=== PATIENT | female | born 1935 | race Caucasian/White ===

== ENCOUNTER 2018-04-03 14:47 | Emergency (ER) | payer BC, MEDICARE ==
[~2018-04-03] VITALS: Ht 170.2 cm; Wt 82.5 kg
[~2018-04-03 14:47] MED LIST: ANTI12.5 PO; ASPI325T PO; ASPI81 PO; CLOP75 PO; FENO50TA PO; FURO1TAB93 PO; GLYB1TAB51 PO; INSU100V SQ; ISOS30 PO; LEVO.15 PO; METO50TA PO; NIAS10004 PO; ONDA8 PO; POTA-243 PO; POTA75TA PO; PREV30CA36 PO; RAMI2.5C29 PO; ROSU40 PO
[2018-04-03 14:49] VITALS: BP 174/89; PULSE 93; RESP 18; TEMP 98.3; O2SAT 94
--- NOTE | 2018-04-03 15:34 | PD ---
HPI Chief Complaint: Fall Time Seen by Provider: 15:01 Travel History International Travel<30 days: No Contact w/Intl Traveler<30days: No Traveled to known affect area: No History of Present Illness HPI Patient approximately 2 nights ago tripped and fell landed on her right flank area. She has had pain there ever since, she comes in today to get evaluated since she decided not to come in the day that it happened. Patient denies any loss of consciousness any chest pain any shortness of breath or any confusion since a fall. She also denies any abdominal pain or back pain. The pain is described as sharp worsened with activity or movement, 4 out of 10, nonradiating. Patient has multiple allergies including Tylenol when Metformin azithromycin sulfa Past medical history significant for hypothyroid, triple bypass in 2004, on Plavix, CHF, CABG, hypercholesterolemia, hypertension, cholecystectomy, GERD, diabetes, anxiety claustrophobia. PFSH Past Medical History Hx Anticoagulant Therapy: Yes (PLAVIX) Autoimmune Disease: No Anxiety: Yes Heart Rhythm Problems: No Cancer: No Cardiovascular Problems: Yes (TRIPLE BYPASS 2004) High Cholesterol: Yes Chest Pain: No Congestive Heart Failure: Yes Diabetes: Yes Diminished Hearing: No Endocrine: Yes GERD: Yes Glaucoma: No Genitourinary: Yes Hepatitis: No Hiatal Hernia: No Hypertension: Yes Neurologic: No Psychiatric: Yes Reproductive: No Respiratory: No Immunizations Current: Yes Myocardial Infarction: No Sickle Cell Disease: No Thyroid Disease: Yes Ulcer: No Menopausal: Yes : 1 Para: 1 Past Surgical History AICD: No Cholecystectomy: Yes (2007) Coronary Artery Bypass Graft: Yes (2004, 3 VESSELS) Endocrine Surgery: Yes ( THYROIDECTOMY,1959) Pacemaker: No Thoracic Surgery: Yes (BILAT BREAST BX) Other Surgery: Yes (VERICOSE VEIN RESECTION) Social History Alcohol Use: No Tobacco Use: No Substance Use: No Allergies-Medications (Allergen,Severity, Reaction): Coded Allergies: Sulfa (Sulfonamide Antibiotics) (Unverified Allergy, Severe, HIVES, ) azithromycin (Unverified Allergy, Severe, Hives, 06/09/17) metformin (Unverified Allergy, Severe, HIVES, 06/09/17) pentazocine (Unverified Allergy, Severe, HIVES, 06/09/17) thiopental (Unverified Allergy, Severe, HIVES, 06/09/17) Uncoded Allergies: CO- QUETIN (Adverse Reaction, Severe, HIVES, 01/26/13) NICKEL (Adverse Reaction, Severe, RASH, 12/28/08) TAPE (Adverse Reaction, Severe, 12/28/08) Reported Meds & Prescriptions Reported Meds & Active Scripts Active Reported Antivert (Meclizine HCl) 12.5 Mg Tab 12.5 Mg PO Q4-6HPRN Zofran 8 Mg Tab (Ondansetron Hcl) 8 Mg Tab 8 Mg PO Q6HPRN Potassium 75 Mg Tab 500 Mg PO HS Imdur 30 Mg (Isosorbide Mononitrate) 30 Mg Tabcr 30 Mg PO DAILY Synthroid (Levothyroxine Sodium) 150 Mcg Tab 150 Mcg PO DAILY Aspirin 81 Mg Tab 81 Mg PO AM Lasix (Furosemide) 40 Mg Tab 40 Mg PO DAILY Humalog Mix 75/25 (Insulin Lispro Protam/Lispro Human) 100 Units/Ml Inj 35 Units SQ DIRECTED Humalog Mix 75/25 (Insulin Lispro Protam/Lispro Human) 100 Units/Ml Inj 55 Units SQ AM Plavix (Clopidogrel Bisulfate) 75 Mg Tab 75 Mg PO EVERY OTHER DAY Klor-Con 10 Meq (Potassium Chloride) 10 Meq Tabcr 10 Meq PO DAILY Altace (Ramipril) 2.5 Mg Cap 2.5 Mg PO DAILY Prevacid (Lansoprazole) 30 Mg Capcr 30 Mg PO DAILY Niaspan Er (Niacin) 1,000 Er Tab 1,500 Mg PO HS Diabeta (Glyburide) 5 Mg Tab 10 Mg PO BID 5 MG - PT TAKES 2 TAB BID Crestor (Rosuvastatin Calcium) 40 Mg Tab 40 Mg PO HS Lopressor (Metoprolol Tartrate) 50 Mg Tab 50 Mg PO BID Tricor (Fenofibrate) 145 Mg Tab 145 Mg PO DIRECTED PT TAKES @ 2100 Aspirin 325 mg (Aspirin) 325 Mg Tab 325 Mg PO DAILY PT TAKES AT 1700 Review of Systems General / Constitutional: No: Fever Eyes: No: Visual changes HENT: No: Headaches Cardiovascular: No: Chest Pain or Discomfort Respiratory: No: Shortness of Breath Gastrointestinal: No: Abdominal Pain Genitourinary: Positive: Flank Pain Musculoskeletal: No: Pain Skin: Positive Other (Bruising to right flank area) Neurologic: No: Weakness Psychiatric: No: Depression Endocrine: No: Polydipsia Hematologic/Lymphatic: No: Easy Bruising Physical Exam Narrative GENERAL: SKIN: Warm and dry. HEAD: Atraumatic. Normocephalic. EYES: Pupils equal and round. No scleral icterus. No injection or drainage. ENT: No nasal bleeding or discharge. Mucous membranes pink and moist. No hemotympanum NECK: Trachea midline. No JVD. CARDIOVASCULAR: Regular rate and rhythm. RESPIRATORY: No accessory muscle use. Clear to auscultation. Breath sounds equal bilaterally. GASTROINTESTINAL: Abdomen soft, non-tender, nondistended. Of note the right flank area has a region of ecchymosis approximately the size of a softball and diameter however is not raised very much mostly flat ecchymosis. No palpable crepitus noted MUSCULOSKELETAL: Extremities without clubbing, cyanosis, or edema. No obvious deformities. NEUROLOGICAL: Awake and alert. No obvious cranial nerve deficits. Motor grossly within normal limits. Five out of 5 muscle strength in the arms and legs. Normal speech. PSYCHIATRIC: Appropriate mood and affect; insight and judgment normal. Data Data Last Documented VS Vital Signs Date Time Temp Pulse Resp B/P (MAP) Pulse Ox O2 Delivery O2 Flow Rate FiO2 04/03/18 15:17 Room Air 04/03/18 14:49 98.3 93 18 174/89 (117) [address] Brain W/O Iv Contrast(Rout) (04/03/18 15:06) Ct Abd/Pel W/O Iv Contrast (04/03/18 ) Ct Thorax/ Chest Wo Iv Contras (04/03/18 ) MDM Medical Decision Making Medical Screen Exam Complete: Yes Emergency Medical Condition: Yes Medical Record Reviewed: Yes Differential Diagnosis Contusion versus fracture versus liver lack versus rib fracture versus pneumothorax Narrative Course Head CT read by radiologist as no acute findings in the brain, moderate severity central and cortical atrophy Chest CT read by radiologist as no acute findings in the chest, mild posterior lateral right pleural thickening and nonunion of the medial sternotomy defect stable since 2014 CT abdomen and pelvis read by radiologist as solid and hollow organs of the abdominal pelvis and an intact work noncontrast technique, mild induration of the subcutaneous soft tissue posterior to lateral right flank... Clinically this is most consistent with the contusion that was noted on physical exam Diagnosis Primary Impression: Right flank contusion Patient Instructions: Contusion in Adults (ED), General Instructions Disposition: 01 DISCHARGE HOME Condition: Stable Gerardo Gamboa MD Apr 03, 2018 15:34
--- NOTE | 2018-04-03 16:04 | RADRPT ---
EXAM DATE: 04/03/2018 3:46 PM EDT AGE/SEX: 83 years / Female INDICATIONS: Tripped and fell 2 days ago, cephalgia. CLINICAL DATA: This is the patient's initial encounter. Patient reports that signs and symptoms have been present for 1 day and indicates a pain score of 4/10. MEDICAL/SURGICAL HISTORY: Cardiovascular disease. Congestive heart failure. Thyroid disease. CAB G. RADIATION DOSE: 56.35 CTDI (mGy) COMPARISON: No prior exams available for comparison. TECHNIQUE: CT of the head without contrast. Using automated exposure control and adjustment of the mA and/or kV according to patient size, radiation dose was kept as low as reasonably achievable to ob tain optimal diagnostic quality images. FINDINGS: Cerebrum: The ventricles, sulci, and basal cisterns are prominent, characteristic of moderate centra l and cortical atrophy.. No evidence of midline shift, mass lesion, hemorrhage or acute infarction. No extraaxial fluid collections are seen. Posterior Fossa: The cerebellum and brainstem are intact. The 4th ventricle is midline. The cerebe llopontine angle is unremarkable. Extracranial: The visualized portion of the orbits is intact. Skull: The calvaria is intact. No evidence of skull fracture. CONCLUSION: 1. No acute findings in the brain. 2. Moderate severity central and cortical atrophy. Electronically signed by: Tolu Willams MD 04/03/2018 4:02 PM EDT
--- NOTE | 2018-04-03 16:10 | RADRPT ---
EXAM DATE: 04/03/2018 3:52 PM EDT AGE/SEX: 83 years / Female INDICATIONS: Tripped and fell two days ago, right flank pain. CLINICAL DATA: This is the patient's initial encounter. Patient reports that signs and symptoms have been present for 1 day and indicates a pain score of 4/10. MEDICAL/SURGICAL HISTORY: Cardiovascular disease. Congestive heart failure. Thyroid disease. CABG . RADIATION DOSE: 5.44 CTDI (mGy) ; Combined studies COMPARISON: [facility], CT CHEST W/O CONTRAST, 08/31/2015. . TECHNIQUE: Multiple contiguous axial images were obtained through the chest without contrast. Image s were obtained in suspended respiration using multiple row detector helical technique. Using automa shelley exposure control and adjustment of the mA and/or kV according to patient size, radiation dose was kept as low as reasonably achievable to obtain optimal diagnostic quality images. FINDINGS: Lungs: The lungs are symmetrically aerated. No infiltrates or nodular densities are seen. There is minimal atelectasis in the right costophrenic angle. Mediastinum: There is good visualization of the great vessels of the middle mediastinum. No evidenc e of mediastinal or hilar adenopathy/mass.Coronary artery calcifications. Pleurae: There is some minimal pleural thickening posterior lateral right mid chest measuring up to 7 mm in thickness which is unchanged in appearance from prior CT in 2014.. Axillae: Unremarkable. Bony Structures: Prior median sternotomy with persistent lucency at the sternotomy defect and the le ft sternum more anterior than the right, stable from prior. No rib fractures seen. Miscellaneous: The examination was extended to include the upper abdomen, and both adrenal glands ar e normal in size and configuration. CONCLUSION: 1. No acute findings in the chest. 2. Mild posterior lateral right pleural thickening and nonunion of the median sternotomy defect, sta ble in appearance when compared to prior CT thorax in 2015. Electronically signed by: Tolu Willams MD 04/03/2018 4:08 PM EDT
--- NOTE | 2018-04-03 16:13 | RADRPT ---
EXAM DATE: 04/03/2018 3:52 PM EDT AGE/SEX: 83 years / Female INDICATIONS: Tripped and fell two days ago. CLINICAL DATA: This is the patient's initial encounter. Patient reports that signs and symptoms have been present for 1 day and indicates a pain score of 4/10. MEDICAL/SURGICAL HISTORY: Cardiovascular disease. Congestive heart failure. Thyroid disease. CABG. RADIATION DOSE: 5.44 CTDI (mGy) ; Combined studies COMPARISON: No prior exams available for comparison. TECHNIQUE: Multiple contiguous axial images were obtained through the abdomen. Images were obtained using multiple row detector helical technique. Using dose reduction techniques, radiation dose was ke pt as low as reasonably achievable to obtain optimal diagnostic quality images. FINDINGS: Liver: The liver has a homogeneous density without space-occupying lesion for noncontrast technique. There is no dilation of the biliary tree. Cholecystectomy. Spleen: Homogeneous density without enlargement. Pancreas: Unremarkable without mass or calcification. Kidneys: Normal in size and shape. No evidence of mass or hydronephrosis. Adrenal Glands: Unremarkable. Aorta: The aorta and proximal iliac vessels are grossly unremarkable without aneurysmal dilation. Bowel/Mesentery: No dilated loops of small or large bowel. A few diverticula in the sigmoid colon. T he appendix is identified lateral to the cecum and has a normal size and configuration. No evidence o f free fluid. Abdominal Wall: There is induration of the subcutaneous fat of the right posterior lateral flank bot h superficial and deep to Mulugeta's fascia. No focal fluid collections and no radiopaque foreign ramon s. Retroperitoneum: No evidence of adenopathy in the retrocrural, para-aortic, or deep pelvic regions. Bladder: Contours are smooth. Reproductive Organs: No abnormal masses or calcifications seen. Inguinal: The inguinal region is unremarkable without evidence of adenopathy. Bony Structures: Unremarkable. CONCLUSION: 1. Mild induration of the subcutaneous soft tissues posterior lateral right flank. 2. The solid and hollow organs of the abdomen/pelvis are intact for noncontrast technique. Electronically signed by: Tolu Willams MD 04/03/2018 4:12 PM EDT
[2018-04-03] MEDS ORDERED: ACETAMINOPHEN/HYDROcodone 325 MG/5 MG TAB PO ONE (18:15)
== END 2018-04-03 19:37 | disposition home or self-care (01) ==
LOC: NEPC 14:47
DX: S30.1XXA Contusion of abdominal wall, initial encounter (principal); W01.0XXA Fall on same level from slipping, tripping and stumbling without subsequent striking against object, initial encounter; I11.0 Hypertensive heart disease with heart failure; I50.9 Heart failure, unspecified; E78.00 Pure hypercholesterolemia, unspecified; E11.9 Type 2 diabetes mellitus without complications; Z95.1 Presence of aortocoronary bypass graft; Z88.2 Allergy status to sulfonamides; Z88.8 Allergy status to other drugs, medicaments and biological substances; Z79.02 Long term (current) use of antithrombotics/antiplatelets; Z79.4 Long term (current) use of insulin; Z79.899 Other long term (current) drug therapy
CPT/HCPCS: 70450; 71250; 74176

== ENCOUNTER 2018-04-05 14:07 | Inpatient (IN) | payer MEDICARE ==
[~2018-04-05] VITALS: Ht 170.2 cm; Wt 84.6 kg
[2018-04-05] VITALS (7 sets, daily range): BP systolic 147–216; BP diastolic 70–90; PULSE 70–117; RESP 17–28; TEMP 98.3–99.1; O2SAT 94–99
[2018-04-05] MEDS ORDERED: SODIUM CHLOR 0.9% 1000 ML INJ 1,000 ML IV ONE (14:18)
--- NOTE | 2018-04-05 14:37 | RADRPT ---
EXAM DATE: 04/05/2018 2:30 PM EDT AGE/SEX: 83 years / Female INDICATIONS: EPISODE OF APHASIC CLINICAL DATA: This is the patient's initial encounter. Patient reports that signs and symptoms have been present for 1 day and indicates a pain score of 0/10. MEDICAL/SURGICAL HISTORY: Cerebrovascular disease. Non-responsive. RADIATION DOSE: 35.79 CTDI (mGy) COMPARISON: [facility] [place], CT BRAIN W/O CONTRAST, 04/03/2018. . Report was called to Dr. Smith at 1430 TECHNIQUE: CT of the head without contrast. Using automated exposure control and adjustment of the mA and/or kV according to patient size, radiation dose was kept as low as reasonably achievable to ob tain optimal diagnostic quality images. FINDINGS: Cerebrum: Moderate central and cortical atrophy No evidence of midline shift, mass lesion, hemorrhag e or acute infarction. No extraaxial fluid collections are seen. Posterior Fossa: The cerebellum and brainstem are intact. The 4th ventricle is midline. The cerebe llopontine angle is unremarkable. Extracranial: The visualized portion of the orbits is intact. Skull: The calvaria is intact. No evidence of skull fracture. CONCLUSION: 1. Atrophy otherwise negative Electronically signed by: Rolan Limon MD 04/05/2018 2:36 PM EDT
[2018-04-05 14:55] LABS: PROTHROMBIN TIME - PATIENT 10.6 SEC (9.8-11.6)
[2018-04-05 14:57] LABS: TROPONIN I LESS THAN 0.02 NG/ML (0.02-0.05)
[2018-04-05 14:59] LABS: AUTOMATED NEUTROPHIL # 7.4 TH/MM3 (1.8-7.7); BASOPHIL # 0.1 TH/MM3 (0-0.2); BASOPHIL % 0.5 % (0.0-2.0); EOSINOPHIL # 0.2 TH/MM3 (0-0.4); EOSINOPHIL % 1.9 % (0.0-4.0); HEMATOCRIT 35.7 % (35.0-46.0); HEMOGLOBIN 11.9 GM/DL (11.6-15.3); LYMPH % 21.5 % (9.0-44.0); LYMPHOCYTE # 2.3 TH/MM3 (1.0-4.8); MEAN CELL VOLUME 85.9 FL (80.0-100.0); MEAN CORPUSCULAR HEMOGLOBIN 28.7 PG (27.0-34.0); MEAN CORPUSCULAR HGB CONC 33.4 % (32.0-36.0); MEAN PLATELET VOLUME 7.8 FL (7.0-11.0); MONO % 7.7 % (0.0-8.0); MONOCYTE # 0.8 TH/MM3 (0-0.9); NEUT % 68.4 % (16.0-70.0); PLATELET COUNT 345 TH/MM3 (150-450); RED BLOOD COUNT 4.16 MIL/MM3 (4.00-5.30); RED CELL DISTRIBUTION WIDTH 14.6 % (11.6-17.2); WHITE BLOOD COUNT 10.8 TH/MM3 (4.0-11.0)
--- NOTE | 2018-04-05 15:06 | RADRPT ---
EXAM DATE: 04/05/2018 2:48 PM EDT AGE/SEX: 83 years / Female INDICATIONS: Fall today right side abdomen pain CLINICAL DATA: This is the patient's initial encounter. Patient reports that signs and symptoms have been present for 1 day and indicates a pain score of 5/10. MEDICAL/SURGICAL HISTORY: Cerebrovascular disease. Cardiovascular disease. CABG. RADIATION DOSE: 10.82 CTDI (mGy) COMPARISON: [facility] [place], CT ABDOMEN & PELVIS W/O CONTRAST, 04/03/2018. . TECHNIQUE: Multiple contiguous axial images were obtained through the abdomen. Images were obtained using multiple row detector helical technique. Using dose reduction techniques, radiation dose was ke pt as low as reasonably achievable to obtain optimal diagnostic quality images. FINDINGS: Lower lungs are clear. Liver is unremarkable Spleen and pancreas appear normal Right and left kidneys unremarkable Minimal induration in the right flank, stable in the interval. There is no evidence for subcapsular hematoma or renal contusion beneath this Moderate vascular calcifications are noted Diverticuli are present in the sigmoid colon without inflammatory changes Review of bone windows reveals fractures of the right 11th and 12th ribs CONCLUSION: 1. Minimal contusion right flank with right rib fractures. 2. No solid organ injury. Electronically signed by: Rolan Limon MD 04/05/2018 3:05 PM EDT
--- NOTE | 2018-04-05 15:08 | RADRPT ---
EXAM DATE: 04/05/2018 2:55 PM EDT AGE/SEX: 83 years / Female INDICATIONS: Stroke alert. CLINICAL DATA: This is the patient's initial encounter. Patient reports that signs and symptoms have been present for 1 day and indicates a pain score of Nonresponsive. MEDICAL/SURGICAL HISTORY: . Cerebrovascular disease None. COMPARISON: [facility] – [place], CHEST SINGLE AP, 02/02/2015. . FINDINGS: Sternal wires previous bypass are noted. Mild cardiomegaly. Lungs are clear. Rib fracture seen by CT are not visualized by chest x-ray. CONCLUSION: Mild compensated cardiomegaly. Rib fractures noted on the right by CT, not visualized by chest radiog raph. Electronically signed by: Rolan Limon MD 04/05/2018 3:07 PM EDT
--- NOTE | 2018-04-05 15:11 | PD ---
HPI Chief Complaint: Stroke Alert Time Seen by Provider: 14:18 Travel History International Travel<30 days: No Contact w/Intl Traveler<30days: No Traveled to known affect area: No History of Present Illness HPI 83-year-old female history of diabetes mellitus, hyper previous stroke, presents here after her daughter called 911 for her not acting normal. According to the paramedics she was awake answering questions however stated she could not move her bilateral lower extremities. When she arrived here, she was awake alert appropriate she was moving all 4 extremities. She had 5 out of 5 strength in her bilateral lower extremities and bilateral upper extremities. Initially the paramedics stated that she had had a hemorrhagic stroke this month however we have no records that show that. The patient states that she had a stroke however was unable to tell me where she was evaluated and seen. She knows she is at the hospital she knows the day of the week she knows the president. PFSH Past Medical History Hx Anticoagulant Therapy: Yes (PLAVIX ) Autoimmune Disease: No Blood Disorders: No Anxiety: Yes Heart Rhythm Problems: No Cancer: No Cardiac Catheterization: Yes Cardiovascular Problems: Yes (TRIPLE BYPASS 2004) High Cholesterol: Yes Chest Pain: No Congestive Heart Failure: Yes Cerebrovascular Accident: Yes (SMALL HEAD BLEED ) Coronary Artery Disease: Yes Diabetes: Yes Patient Takes Glucophage: No Diminished Hearing: No Endocrine: Yes GERD: Yes Glaucoma: No Genitourinary: Yes Hepatitis: No Hiatal Hernia: No Hypertension: Yes Medical other: Yes (GERD; ARTHRITIS) Musculoskeletal: Yes Neurologic: No Psychiatric: Yes Reproductive: No Respiratory: No Immunizations Current: Yes Myocardial Infarction: No Sickle Cell Disease: No Thyroid Disease: Yes Ulcer: No Tetanus Vaccination: > 5 Years Influenza Vaccination: Yes Menopausal: Yes : 1 Para: 1 Past Surgical History AICD: No Cardiac Surgery: Yes (open heart surgery ) Cholecystectomy: Yes (2007) Coronary Artery Bypass Graft: Yes (2004, 3 VESSELS) Endocrine Surgery: Yes ( THYROIDECTOMY,1959) Pacemaker: No Thoracic Surgery: Yes (BILAT BREAST BX) Other Surgery: Yes (VERICOSE VEIN RESECTION) Social History Alcohol Use: No Tobacco Use: No Substance Use: No Allergies-Medications (Allergen,Severity, Reaction): Coded Allergies: Sulfa (Sulfonamide Antibiotics) (Unverified Allergy, Severe, HIVES, ) azithromycin (Unverified Allergy, Severe, Hives, 04/05/18) metformin (Unverified Allergy, Severe, HIVES, 04/05/18) pentazocine (Unverified Allergy, Severe, HIVES, 04/05/18) thiopental (Unverified Allergy, Severe, HIVES, 04/05/18) Uncoded Allergies: CO- QUETIN (Adverse Reaction, Severe, HIVES, 01/26/13) Reported Meds & Prescriptions Reported Meds & Active Scripts Active Reported Humalog Inj (Insulin Human Lispro) 1,000 Unit/10 Ml Vial 20 Units SQ BID Aspirin 81 Mg Chew 81 Mg CHEW DAILY Isosorbide Mononitrate 10 Mg Tab 30 Mg PO DAILY Take 2 doses 7 hours apart. Lasix (Furosemide) 40 Mg Tab 40 Mg PO DAILY Ramipril 5 Mg Cap 5 Mg PO BID Plavix (Clopidogrel Bisulfate) 75 Mg Tab 75 Mg PO EVERY OTHER DAY Meclizine (Meclizine HCl) 25 Mg Tab 25 Mg PO TID PRN Potassium Chloride ER (Potassium Chloride) 10 Meq Cap 10 Meq PO DAILY Simvastatin 40 Mg Tab 40 Mg PO DAILY Metoprolol Tartrate 50 Mg Tab 50 Mg PO BID Glyburide 5 Mg Tab 10 Mg PO BID Take with meals at the same time each day Review of Systems Except as stated in HPI: all other systems reviewed are Neg Eyes: No: Diploplia, Blurred Vision HENT: No: Headaches, Lightheadedness, Neck Pain Cardiovascular: No: Chest Pain or Discomfort, Palpitations Respiratory: No: Cough, Shortness of Breath Gastrointestinal: No: Nausea, Vomiting, Abdominal Pain Genitourinary: No: Frequency, Dysuria Musculoskeletal: No: Weakness, Pain Neurologic: Positive: Focal Abnormalities (Reported could not move her lower extremities, none now), Change in Mentation (Reported, none now), No: Weakness, Dizziness, Headache Physical Exam Narrative GENERAL: Well-developed well-nourished female in no acute respiratory distress. SKIN: Focused skin assessment warm/dry. HEAD: Atraumatic. Normocephalic. EYES: Pupils equal and round. No scleral icterus. No injection or drainage. ENT: No nasal bleeding or discharge. Mucous membranes pink and moist. NECK: Trachea midline. Supple. CARDIOVASCULAR: Regular rate and rhythm. No murmur appreciated. RESPIRATORY: No accessory muscle use. Clear to auscultation. Breath sounds equal bilaterally. GASTROINTESTINAL: Abdomen soft, nondistended. Patient is complaining of tenderness to palpation on her right lateral flank area. No obvious deformities or crepitance. Patient states that from a fall either today or couple days ago. MUSCULOSKELETAL: No obvious deformities. No clubbing. No cyanosis. No edema. NEUROLOGICAL: Awake and alert. No obvious cranial nerve deficits. Motor grossly within normal limits. Normal speech. PSYCHIATRIC: Appropriate mood and affect; insight and judgment normal. Data Data Last Documented VS Vital Signs Date Time Temp Pulse Resp B/P (MAP) Pulse Ox O2 Delivery O2 Flow Rate FiO2 04/05/18 15:28 70 19 178/74 (108) 95 Nasal Cannula 2.00 04/05/18 14:11 99.1 Orders Orders Activity Bed Rest (04/05/18 ) Electrocardiogram (04/05/18 ) I-Stat Profile (04/05/18 14:18) Prothrombin Time / Inr (Pt) (04/05/18 14:18) Act Partial Throm Time (Ptt) (04/05/18 14:18) Complete Blood Count With Diff (04/05/18 14:18) Fibrinogen (04/05/18 14:18) Creatine Kinase (Cpk) (04/05/18 14:18) Troponin I (04/05/18 14:18) Ua Includes Microscopic (04/05/18 14:18) Drug Screen, Random Urine (04/05/18 14:18) Type And Screen (04/05/18 14:18) Ct Brain W/O Iv Contrast(Rout) (04/05/18 ) Chest, Single Ap (04/05/18 ) Beta Hcg (Quant/Titer) (04/05/18 14:18) Consult Neurology (04/05/18 ) Blood Glucose (04/05/18 14:18) Ecg Monitoring (04/05/18 14:18) Neuro Checks Q2HX12,Q4H (04/05/18 14:18) Nursing Bedside Swallow Assess .ONCE (04/05/18 14:18) Iv Access Insert/Monitor (04/05/18 14:18) NPO (04/05/18 14:18) Oximetry (04/05/18 14:18) Resp Oxygen Nc Stroke (04/05/18 ) Sodium Chlor 0.9% 1000 Ml Inj (Ns 1000 M (04/05/18 14:18) Cath For Specimen (04/05/18 14:18) Ct Abd/Pel W/O Iv Contrast (04/05/18 14:25) Portable Eeg (04/05/18 ) Mri Brain W/O Contrast (04/05/18 ) (Hub Use Only)Inp Phy Cons/Ref (04/05/18 ) Ceftriaxone Inj (Rocephin Inj) (04/05/18 16:30) Admit To Inpatient (04/05/18 ) Vital Signs (Adult) Q4H (04/05/18 16:31) Activity Oob With Assistance (04/05/18 16:31) Animal Herder / Telemetry .CONTINUOUS (04/05/18 16:31) Diet Heart Healthy (04/05/18 Dinner) Sodium Chlor 0.9% 1000 Ml Inj (Ns 1000 M (04/05/18 17:00) Sodium Chloride 0.9% Flush (Ns Flush) (04/05/18 16:45) Sodium Chloride 0.9% Flush (Ns Flush) (04/05/18 21:00) Comprehensive Metabolic Panel (04/06/18 06:00) Complete Blood Count With Diff (04/06/18 06:00) Resp Oxygen Juan C Titrat 1-4 L (04/05/18 ) Enoxaparin Inj (Lovenox Inj) (04/05/18 17:00) Scd Bilateral/Knee High MARCIE.BID (04/05/18 16:31) Naloxone Inj (Narcan Inj) (04/05/18 16:45) Magnesium Hydroxide Liq (Milk Of Magnesi (04/05/18 16:45) Inpatient Certification (04/05/18 ) Lactobacillus Acidophilus (Lactinex) (04/05/18 18:00) Ceftriaxone Inj (Rocephin Inj) (04/06/18 16:00) Admit Order (Ed Use Only) (04/05/18 16:34) Admit Order (Ed Use Only) (04/05/18 16:34) Ondansetron Odt (Zofran Odt) (04/05/18 17:00) Labs Laboratory Tests Test 04/05/18 14:15 04/05/18 15:00 White Blood Count 10.8 TH/MM3 Red Blood Count 4.16 MIL/MM3 Hemoglobin 11.9 GM/DL Bedside Hemoglobin 10.9 G/DL Hematocrit 35.7 % Bedside Hematocrit 32.0 % Mean Corpuscular Volume 85.9 FL Mean Corpuscular Hemoglobin 28.7 PG Mean Corpuscular Hemoglobin Concent 33.4 % Red Cell Distribution Width 14.6 % Platelet Count 345 TH/MM3 Mean Platelet Volume 7.8 FL Neutrophils (%) (Auto) 68.4 % Lymphocytes (%) (Auto) 21.5 % Monocytes (%) (Auto) 7.7 % Eosinophils (%) (Auto) 1.9 % Basophils (%) (Auto) 0.5 % Neutrophils # (Auto) 7.4 TH/MM3 Lymphocytes # (Auto) 2.3 TH/MM3 Monocytes # (Auto) 0.8 TH/MM3 Eosinophils # (Auto) 0.2 TH/MM3 Basophils # (Auto) 0.1 TH/MM3 CBC Comment DIFF FINAL Differential Comment Prothrombin Time 10.6 SEC Prothromb Time International Ratio 1.0 RATIO Activated Partial Thromboplast Time 24.8 SEC Fibrinogen 640 mg/dL Bedside Sodium 140 MMOL/L Bedside Potassium 3.2 MMOL/L Bedside Chloride 100 MMOL/L Bedside Blood Urea Nitrogen 30 MG/DL Bedside Creatinine 2.0 MG/DL Bedside Glucose 98 MG/DL Total Creatine Kinase 94 U/L Troponin I LESS THAN 0.02 NG/ML Human Chorionic Gonadotropin, Quant 1 MIU/ML Urine Color YELLOW Urine Turbidity HAZY Urine pH 6.0 Urine Specific [place] 1.025 Urine Protein GREATER THAN 600 mg/dL Urine Glucose (UA) 150 mg/dL Urine Ketones NEG mg/dL Urine Occult Blood SMALL Urine Nitrite NEG Urine Bilirubin NEG Urine Urobilinogen 2.0 MG/DL Urine Leukocyte Esterase MOD Urine RBC 3 /hpf Urine WBC 111 /hpf Urine WBC Clumps FEW Urine Squamous Epithelial Cells 2 /hpf Urine Bacteria MANY /hpf Urine Hyaline Casts 6 /lpf Urine Mucus FEW /lpf Microscopic Urinalysis Comment CATH Urine Opiates Screen POS Urine Barbiturates Screen NEG Urine Amphetamines Screen NEG Urine Benzodiazepines Screen POS Urine Cocaine Screen NEG Urine Cannabinoids Screen NEG MDM Medical Decision Making Medical Screen Exam Complete: Yes Emergency Medical Condition: Yes Differential Diagnosis TIA versus atypical seizure versus CVA versus metabolic derangement Narrative Course 83-year-old female presents as a stroke alert. Patient reportedly had a stroke a month ago according to the paramedics. Patient is awake alert. There is no focal deficits. Apparently she had decreased mental status when paramedics were called. The patient has a UTI. She has been started on Rocephin. She will be admitted to the hospital. Dr. Ortiz, on-call neurologist, has come to see the patient and is written for some neurologic studies. Case was discussed with [facility] Luo, [facility], who will admit the patient to his service. Diagnosis Primary Impression: UTI (urinary tract infection) Additional Impressions: CVA versus TIA HTN (hypertension) Admitting Information Admitting Physician Requests: Observation Vasquez Smith MD Apr 05, 2018 15:11
[2018-04-05] MEDS ORDERED: FURO1TAB60 PO ×2 (15:19)
[2018-04-05] MEDS ORDERED: MECL-62 PO ×2 (15:19)
[2018-04-05] MEDS ORDERED: RAMI5CAP PO ×2 (15:19)
[2018-04-05] MEDS ORDERED: ASPI-516 CHEW ×2 (15:19)
[2018-04-05] MEDS ORDERED: METO50TA PO ×2 (15:19)
[2018-04-05] MEDS ORDERED: POTA10CA PO ×2 (15:19)
[2018-04-05] MEDS ORDERED: PLAV75TA29 PO ×2 (15:19)
[2018-04-05] MEDS ORDERED: GLYB5TAB3 PO ×2 (15:19)
[2018-04-05] MEDS ORDERED: ISOS10TA3 PO ×2 (15:19)
[2018-04-05] MEDS ORDERED: SIMV40TA PO ×2 (15:19)
[2018-04-05] MEDS ORDERED: HUMALOG SQ ×2 (15:22)
--- NOTE | 2018-04-05 15:50 | MB ---
cc: Ernestine Ortiz MD DATE: 04/05/2018 HISTORY OF PRESENT ILLNESS: She came in as a stroke alert. I had seen the patient back in February for falls. An 83-year-old woman with history of diabetes, prior stroke, in 02/2013 was her abnormal MRI, heart disease, bypass 3 vessels, diabetes, COPD, anxiety and hypothyroidism. Apparently, her daughter called for an ambulance because was found that her mother was having trouble speaking, some questionable weakness, could not move her legs, which she is able to do now. She is speaking fine. She arrived here, she was able to speak and move all extremities. I do not see any residual weakness. She told paramedics, she had a hemorrhagic stroke this month; however, her CAT scan does not show that nor does her MRI from 03/07/2018. She states she is on Plavix. When she left 03/07/2018, she was to be on 2 baby aspirins and Plavix because she came in on baby aspirin and Plavix and had the stroke, despite that, however, I am guessing that compliance may not be at 100%. She seems to be back at her baseline. PAST MEDICAL HISTORY: As stated. ALLERGIES: SULFA, ZITHROMAX, METFORMIN, PENTAZOCINE, THIOPENTAL, CO-Q10, NICKEL AND TAPE. MEDICATIONS: Please refer to MR. PHYSICAL EXAMINATION: VITAL SIGNS: Temperature is 98.3, pulse 73, respiratory rate 28, blood pressure 169/70, saturating at 98% on room air. NECK: Supple. HEART: Regular. NEUROLOGIC: The patient is awake and alert. She knows where she is at. Her pupils react. Visual asher are full. Face symmetrical. Tongue is midline. She is edentulous. Motor crocker, I do not see any significant drift or leg lag. DTRs are 1+. Toes withdraw. Cerebellar is normal. Sensory is intact. Gait is withheld at this time, she is at bedrest. Of note, she has 2 charts here at [place]. The chart that I am reading, her MRI report is a different chart from this one. On 03/07/2018, ancillary studies, 03/07/2018, she had an MRI that showed an acute lacune right basal ganglia. MRA [place] showed some focal stenosis, possibly high grade versus hypoplastic right A1 segment. Carotid ultrasound was unremarkable. IMPRESSION/PLAN: I am not sure if this is a TIA or some other event occurring with this patient, but I am going to get an EEG. I will go ahead and repeat an MRI brain. She has had some falls. There is some possibility that there is some hoarding in the past, maybe she fell due to unsafe household. 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 The alturas of aging maybe is questionable, that they should come in and do a safety check. Continue her on her clopidogrel for now. We will get an EEG and MRI. Going back into her other record, I believe looking at all of them that she did have an echocardiogram. She did 03/09/2018 and that result showed EF of 60-65%. Left ventricular diastolic function was normal. Calcification posterior mitral valve leaflets, mild mitral regurgitation, mild tricuspid valve regurgitation. I do not think that needs to be rechecked either, nor do the carotids. Get her out of bed with PT. Check orthostatics. Not sure why she is falling at this point, and discharge planning. MD BOONE Glasgow/SUPRIYA , 03:20 PM , 03:49 PM
[2018-04-05 16:02] LABS: BACTERIA, URINE MANY /hpf; BLOOD, URINE SMALL (NEG); GLUCOSE,URINE 150 mg/dL (NEG); HYALINE CAST, URINE 6 /lpf (RARE); KETONE, URINE NEG (NEG); MUCUS URINE FEW /lpf (OCC); NITRITE,URINE NEG (NEG); SQUAMOUS EPITHELIAL CELL URINE 2 /hpf (0-5); URINE COLOR YELLOW (YELLW/STRAW); URINE LEUKOCYTE ESTERASE MOD (NEG); WHITE BLOOD CELL CLUMPS FEW
[2018-04-05 16:03] LABS: BILIRUBIN, URINE NEG (NEG)
[2018-04-05] MEDS ORDERED: cefTRIAXone INJ 1,000 MG in SODIUM CHLORIDE 0.9% INJ 100 ML IV ONE (16:30)
--- NOTE | 2018-04-05 16:35 | RADRPT ---
EXAM DATE: 04/05/2018 4:28 PM EDT AGE/SEX: 83 years / Female INDICATIONS: TIA. CLINICAL DATA: This is the patient's initial encounter. Patient reports that signs and symptoms have been present for 1 day and indicates a pain score of 3/10. MEDICAL/SURGICAL HISTORY: Hypertension. Diabetes mellitus type II. CABG. Cholecystectomy. Thy roid sx, Carpel tunnel sx, Vein strip sx in legs bilaterally. COMPARISON: No prior exams available for comparison. TECHNIQUE: Multiplanar, multisequence examination of the brain was performed without contrast. FINDINGS: Cerebrum: The ventricles are normal for age. No evidence of midline shift, mass lesion, hemorrhage or acute infarction. No extraaxial fluid collections are seen. The pituitary gland and suprasellar cistern are normal in configuration. White Matter: Scattered foci of high T2 signal abnormality which is confluent nature involving the p eriventricular white matter of both cerebral hemispheres.. Posterior Fossa: The cerebellum and brainstem are intact. The 4th ventricle is midline. The cerebel lopontine angle is unremarkable. The cerebellar tonsils are normal in position. Diffusion Imaging: No focal areas of restricted diffusion are seen. No evidence of acute infarction . Extracranial: The visualized portions of the orbits and paranasal sinuses are unremarkable. CONCLUSION: 1. No acute intracranial abnormality. 2. Chronic small vessel ischemic change. Electronically signed by: Tolu Mark MD 04/05/2018 4:34 PM EDT
[2018-04-05] MEDS ORDERED: NALOXONE HCL 0.4 MG/ML AMP IV PUSH PRN (16:45)
[2018-04-05] MEDS ORDERED: MAGNESIUM HYDROXIDE SUSP 30 ML CUP PO PRN (16:45)
[2018-04-05] MEDS ORDERED: SODIUM CHLORIDE 0.9% FLUSH 10 ML FLUSH IV FLUSH PRN (16:45)
[2018-04-05] MEDS ORDERED: ENOXAPARIN SODIUM 40 MG/0.4 ML SYRINGE SQ SCH (17:00)
[2018-04-05] MEDS ORDERED: ONDANSETRON ODT 4 MG TAB PO PRN (17:00)
[2018-04-05] MEDS: SODIUM CHLOR 0.9% 1000 ML INJ 1,000 ML IV SCH ×2 (17:00→21:41)
--- NOTE | 2018-04-05 17:16 | HHI.HP ---
[facility] Unknown Admission Diagnosis cva vs tia, urinary tract infection. Diagnoses: (1) SIRS (systemic inflammatory response syndrome) Diagnosis: Principal (2) UTI (urinary tract infection) Diagnosis: Principal (3) Hypokalemia Diagnosis: Principal (4) HTN (hypertension) Diagnosis: Principal (5) BAO (acute kidney injury) Diagnosis: Principal Travel History International Travel<30 Days: No Contact w/Intl Traveler <30 Da: No Traveled to Known Affected Are: No History of Present Illness Mrs. Claros is an 83-year-old female. She came in the hospital secondary to slurred speech. Concerns for CVA versus TIA were present. She has found to have Sirs with a prominent UTI. Etiology for her slurred speech may also be related to encephalopathy from infection. Neurologic symptoms have resolved for now. Imaging of the brain shows no acute evidence of CVA. Other findings are hypokalemia and acute kidney injury, both of which appear to be related to urinary tract infection. No other complaints tonight. Review of Systems Constitutional: COMPLAINS OF: Fatigue, DENIES: Fever, Chills Endocrine: DENIES: Abnorml menstrual pattern, Heat/cold intolerance, Polydipsia Eyes: DENIES: Blurred vision, Diplopia, Eye inflammation, Eye pain Ears, nose, mouth, throat: DENIES: Hearing loss, Vertigo, Nasal discharge Respiratory: DENIES: Cough, Wheezing, Shortness of breath Cardiovascular: DENIES: Chest pain, Palpitations, Syncope Gastrointestinal: DENIES: Abdominal pain, Black stools, Bloody stools Musculoskeletal: DENIES: Joint pain, Muscle aches, Stiffness Integumentary: DENIES: Abnormal pigmentation, Pruritus, Rash, Nail changes Hematologic/lymphatic: DENIES: Bruising, Lymphadenopathy Immunologic/allergic: DENIES: Eczema, Urticaria Neurologic: COMPLAINS OF: Speech Problems, DENIES: Abnormal gait, Headache, Paresthesias Except as stated in HPI: all other systems reviewed are Neg Past Family Social History Past Medical History Coronary artery disease Congestive heart failure History of small hemorrhagic brain bleed Hyperlipidemia Hypertension General anxiety disorder Diabetes mellitus type 2 Gastroesophageal reflux disease Osteoarthritis Hypothyroidism Past Surgical History Open heart surgery with three-vessel CABG in 2004 Cholecystectomy Thyroidectomy Bilateral breast biopsies Varicose veins resection Reported Medications Reported Meds & Active Scripts Active Reported Humalog Inj (Insulin Human Lispro) 1,000 Unit/10 Ml Vial 20 Units SQ BID Aspirin 81 Mg Chew 81 Mg CHEW DAILY Isosorbide Mononitrate 10 Mg Tab 30 Mg PO DAILY Take 2 doses 7 hours apart. Lasix (Furosemide) 40 Mg Tab 40 Mg PO DAILY Ramipril 5 Mg Cap 5 Mg PO BID Plavix (Clopidogrel Bisulfate) 75 Mg Tab 75 Mg PO EVERY OTHER DAY Meclizine (Meclizine HCl) 25 Mg Tab 25 Mg PO TID PRN Potassium Chloride ER (Potassium Chloride) 10 Meq Cap 10 Meq PO DAILY Simvastatin 40 Mg Tab 40 Mg PO DAILY Metoprolol Tartrate 50 Mg Tab 50 Mg PO BID Glyburide 5 Mg Tab 10 Mg PO BID Take with meals at the same time each day Allergies: Coded Allergies: Sulfa (Sulfonamide Antibiotics) (Unverified Allergy, Severe, HIVES, ) azithromycin (Unverified Allergy, Severe, Hives, 04/05/18) metformin (Unverified Allergy, Severe, HIVES, 04/05/18) pentazocine (Unverified Allergy, Severe, HIVES, 04/05/18) thiopental (Unverified Allergy, Severe, HIVES, 04/05/18) Uncoded Allergies: CO- QUETIN (Adverse Reaction, Severe, HIVES, 01/26/13) NICKEL (Adverse Reaction, Severe, RASH, 12/28/08) TAPE (Adverse Reaction, Severe, 12/28/08) Active Ordered Medications Administered Medications Medications (Trade) Dose Ordered Sig/Aaliyah Route PRN Reason Start Time Stop Time Status Last Admin Dose Admin Sodium Chloride 1,000 ml @ 70 mls/hr [id number] ONCE IV 04/05/18 14:18 04/06/18 04:35 04/05/18 15:26 Family History Diabetes mellitus type 2 Hypertension Social History Alcohol Use: No Tobacco Use: No Substance Use: No Physical Exam Vital Signs Vital Signs Date Time Temp Pulse Resp B/P (MAP) Pulse Ox O2 Delivery O2 Flow Rate FiO2 04/05/18 15:28 70 19 178/74 (108) 95 Nasal Cannula 2.00 6/11/18 15:03 73 28 169/70 (103) 98 Nasal Cannula 2.00 04/05/18 14:29 71 18 165/72 (103) 99 Nasal Cannula 04/05/18 14:12 97 2.00 04/05/18 14:11 98 Nasal Cannula 2.00 04/05/18 14:11 99.1 73 26 210/86 (127) 97 Physical Exam GENERAL: NAD, A&Ox3 HEAD: Normocephalic. NECK: Supple, trachea midline. No lymphadenopathy. EYES: No scleral icterus. No injection or drainage. CARDIOVASCULAR: Regular rate and rhythm without murmurs, gallops, or rubs. RESPIRATORY: Breath sounds equal bilaterally. No accessory muscle use. GASTROINTESTINAL: Abdomen soft, non-tender, nondistended. MUSCULOSKELETAL: No cyanosis, or edema. SKIN: Warm and dry. NEURO: No focal neurological deficitis. Laboratory Laboratory Tests Test 04/05/18 14:15 04/05/18 15:00 White Blood Count 10.8 Red Blood Count 4.16 Hemoglobin 11.9 Bedside Hemoglobin 10.9 Hematocrit 35.7 Bedside Hematocrit 32.0 Mean Corpuscular Volume 85.9 Mean Corpuscular Hemoglobin 28.7 Mean Corpuscular Hemoglobin Concent 33.4 Red Cell Distribution Width 14.6 Platelet Count 345 Mean Platelet Volume 7.8 Neutrophils (%) (Auto) 68.4 Lymphocytes (%) (Auto) 21.5 Monocytes (%) (Auto) 7.7 Eosinophils (%) (Auto) 1.9 Basophils (%) (Auto) 0.5 Neutrophils # (Auto) 7.4 Lymphocytes # (Auto) 2.3 Monocytes # (Auto) 0.8 Eosinophils # (Auto) 0.2 Basophils # (Auto) 0.1 CBC Comment DIFF FINAL Differential Comment Prothrombin Time 10.6 Prothromb Time International Ratio 1.0 Activated Partial Thromboplast Time 24.8 Fibrinogen 640 Bedside Sodium 140 Bedside Potassium 3.2 Bedside Chloride 100 Bedside Blood Urea Nitrogen 30 Bedside Creatinine 2.0 Bedside Glucose 98 Total Creatine Kinase 94 Troponin I LESS THAN 0.02 Human Chorionic Gonadotropin, Quant 1 Urine Color YELLOW Urine Turbidity HAZY Urine pH 6.0 Urine Specific Byron 1.025 Urine Protein GREATER THAN 600 Urine Glucose (UA) 150 Urine Ketones NEG Urine Occult Blood SMALL Urine Nitrite NEG Urine Bilirubin NEG Urine Urobilinogen 2.0 Urine Leukocyte Esterase MOD Urine RBC 3 Urine WBC 111 Urine WBC Clumps FEW Urine Squamous Epithelial Cells 2 Urine Bacteria MANY Urine Hyaline Casts 6 Urine Mucus FEW Microscopic Urinalysis Comment CATH Urine Opiates Screen POS Urine Barbiturates Screen NEG Urine Amphetamines Screen NEG Urine Benzodiazepines Screen POS Urine Cocaine Screen NEG Urine Cannabinoids Screen NEG Result Diagram: 04/05/18 1415 Caprini VTE Risk Assessment Caprini VTE Risk Assessment: Mod/High Risk (score >= 2) Caprini Risk Assessment Model Point Value = 1 Point Value = 2 Point Value = 3 Point Value = 5 Age 41-60 Minor surgery BMI > 25 kg/m2 Swollen legs Varicose veins or History of unexplained or recurrent spontaneous Oral contraceptives or hormone replacement Sepsis (< 1 month) Serious lung disease, including pneumonia (< 1 month) Abnormal pulmonary function Acute myocardial infarction Congestive heart failure (< 1 month) History of inflammatory bowel disease Medical patient at bed rest Age 61-74 Arthroscopic surgery Major open surgery (> 45 min) Laparoscopic surgery (> 45 min) Malignancy Confined to bed (> 72 hours) Immobilizing plaster cast Central venous access Age >= 75 History of VTE Family history of VTE Factor V Leiden Prothrombin [id number] Lupus anticoagulant Anticardiolipin antibodies Elevated serum homocysteine Heparin-induced thrombocytopenia Other congenital or acquired thrombophilia Stroke (< 1 month) Elective arthroplasty Hip, pelvis, or leg fracture Acute spinal cord injury (< 1 month) Prophylaxis Regimen Total Risk Factor Score Risk Level Prophylaxis Regimen 0-1 Low Early ambulation 2 Moderate Order ONE of the following: *Sequential Compression Device (SCD) *Heparin 5000 units SQ BID 3-4 Higher Order ONE of the following medications: *Heparin 5000 units SQ TID *Enoxaparin/Lovenox 40 mg SQ daily (WT < 150 kg, CrCl > 30 mL/min) *Enoxaparin/Lovenox 30 mg SQ daily (WT < 150 kg, CrCl > 10-29 mL/min) *Enoxaparin/Lovenox 30 mg SQ BID (WT < 150 kg, CrCl > 30 mL/min) AND/OR *Sequential Compression Device (SCD) 5 or more Highest Order ONE of the following medications: *Heparin 5000 units SQ TID (Preferred with Epidurals) *Enoxaparin/Lovenox 40 mg SQ daily (WT < 150 kg, CrCl > 30 mL/min) *Enoxaparin/Lovenox 30 mg SQ daily (WT < 150 kg, CrCl > 10-29 mL/min) *Enoxaparin/Lovenox 30 mg SQ BID (WT < 150 kg, CrCl > 30 mL/min) AND *Sequential Compression Device (SCD) Assessment and Plan Problem List: (1) BAO (acute kidney injury) ICD Code: N17.9 - Acute kidney failure, unspecified (2) SIRS (systemic inflammatory response syndrome) ICD Code: R65.10 - Systemic inflammatory response syndrome (SIRS) of non- infectious origin without acute organ dysfunction (3) HTN (hypertension) ICD Code: I10 - Essential (primary) hypertension (4) UTI (urinary tract infection) ICD Code: N39.0 - Urinary tract infection, site not specified (5) Hypokalemia ICD Code: E87.6 - Hypokalemia Assessment and Plan 83-year-old female admitted secondary to acute dysarthria found to have urinary tract infection with SIRS Urinary tract infection SIRS Possible related encephalopathy Rocephin Follow cultures Acute dysarthria History of small hemorrhagic brain bleed Resolved TIA versus infection related encephalopathy Daily aspirin contraindicated given recent brain bleed Treat infection Follow clinically for any recurrence Hypokalemia Replace and monitor Acute kidney injury Avoid nephrotoxins Follow renal function IV Hydration Hypertension Continue baseline treatment Follow blood pressures Adjust treatments as needed Hyperlipidemia Continue present treatment Follow as an outpatient Diabetes mellitus type 2 Follow blood sugars Insulin sliding scale Diabetic diet Coronary artery disease Congestive heart failure General anxiety disorder Gastroesophageal reflux disease Osteoarthritis Hypothyroidism No change in baseline treatments Follows an outpatient DVT prophylaxis SCDs Physician Certification 2 Midnight Certification Type: Admission for Inpatient Services Order for Inpatient Services The services are ordered in accordance with Medicare regulations or non- Medicare payer requirements, as applicable. In the case of services not specified as inpatient-only, they are appropriately provided as inpatient services in accordance with the 2-midnight benchmark. Estimated LOS (days): 3 days is the estimated time the patient will need to remain in the hospital, assuming treatment plan goals are met and no additional complications. Post-Hospital Plan: Home Dariel Luo MD Apr 05, 2018 17:16
[2018-04-05] MEDS ORDERED: GLUCAGON 1 MG/ML VIAL OTHER PRN (17:30)
[2018-04-05] MEDS ORDERED: DEXTROSE 50% IN WATER 50 ML VIAL(D50) IV PUSH PRN (17:30)
[2018-04-05] MEDS ORDERED: MECLIZINE HCL 25 MG TAB PO PRN (17:30)
[2018-04-05] MEDS: LACTOBACILLUS ACIDOPHILUS TAB PO SCH (18:00)
[2018-04-05] MEDS: cloNIDine HCL 0.1 MG TAB PO PRN (20:11)
[2018-04-05] MEDS ORDERED: INSULIN LISPRO 20 UNIT SQ SCH (21:00)
[2018-04-05] MEDS: INSULIN ASPART SUPPLEMENTAL SCALE SQ SCH (21:00)
[2018-04-05] MEDS: RAMIPRIL 5 MG CAP PO SCH (21:46)
[2018-04-05] MEDS: INSULIN ASPART 1,000 UNITS/10 ML VIAL SQ SCH (21:47)
[2018-04-05] MEDS: METOPROLOL TARTRATE 50 MG TAB PO SCH (21:47)
--- NOTE | 2018-04-05 21:47 | EKG ---
Date Performed: 04/05/2018 Time Performed: 14:48:51 PTAGE: 83 years EKG: Sinus rhythm NONSPECIFIC ST & T-WAVE ABNORMALITY BORDERLINE ECG Unfortunately both EKGs have artifact and I canno t accurately compare. Precordial lead voltages have increased. PREVIOUS TRACING : 02/02/2015 13.16 DOCTOR: Mario Garcia Interpretating Date/Time 04/05/2018 21:46:37
[2018-04-05] MEDS: SODIUM CHLORIDE 0.9% FLUSH 10 ML FLUSH IV FLUSH SCH (21:48)
[2018-04-06] VITALS (12 sets, daily range): BP systolic 129–180; BP diastolic 62–86; PULSE 58–69; RESP 18–20; TEMP 97.9–98.8; O2SAT 95–98
[2018-04-06 06:05] LABS: AUTOMATED NEUTROPHIL # 8.4 TH/MM3 (1.8-7.7); BASOPHIL % 0.4 % (0.0-2.0); EOSINOPHIL # 0.1 TH/MM3 (0-0.4); EOSINOPHIL % 1.1 % (0.0-4.0); HEMATOCRIT 37.1 % (35.0-46.0); HEMOGLOBIN 12.1 GM/DL (11.6-15.3); LYMPH % 12.7 % (9.0-44.0); LYMPHOCYTE # 1.4 TH/MM3 (1.0-4.8); MEAN CELL VOLUME 87.2 FL (80.0-100.0); MEAN CORPUSCULAR HEMOGLOBIN 28.5 PG (27.0-34.0); MEAN CORPUSCULAR HGB CONC 32.6 % (32.0-36.0); MEAN PLATELET VOLUME 8.1 FL (7.0-11.0); MONOCYTE # 0.7 TH/MM3 (0-0.9); NEUT % 78.8 % (16.0-70.0); PLATELET COUNT 306 TH/MM3 (150-450); RED BLOOD COUNT 4.25 MIL/MM3 (4.00-5.30); RED CELL DISTRIBUTION WIDTH 14.5 % (11.6-17.2); WHITE BLOOD COUNT 10.7 TH/MM3 (4.0-11.0)
[2018-04-06 06:17] LABS: ALBUMIN 2.4 GM/DL (3.4-5.0); AST (GOT) 41 U/L (15-37); BICARBONATE 25.8 MEQ/L (21.0-32.0); BLOOD UREA NITROGEN 30 MG/DL (7-18); CHLORIDE 103 MEQ/L (98-107); CREATININE 1.89 MG/DL (0.50-1.00); GLOMERULAR FILTRATION RATE 25 ML/MIN (>89); GLUCOSE,RANDOM 185 MG/DL (74-106); SODIUM (NA) 140 MEQ/L (136-145)
[2018-04-06 06:19] LABS: ALT (GPT) 37 U/L (10-53)
[2018-04-06 06:20] LABS: ALKALINE PHOSPHATASE 258 U/L (45-117); TOTAL BILIRUBIN ADULT 0.2 MG/DL (0.2-1.0); TOTAL PROTEIN 6.4 GM/DL (6.4-8.2)
[2018-04-06] MEDS: INSULIN ASPART SUPPLEMENTAL SCALE SQ SCH ×4 (08:00→22:46)
[2018-04-06] MEDS: SODIUM CHLORIDE 0.9% FLUSH 10 ML FLUSH IV FLUSH SCH ×2 (09:00→20:54)
[2018-04-06] MEDS: INSULIN ASPART 1,000 UNITS/10 ML VIAL SQ SCH ×2 (09:00→22:45)
[2018-04-06] MEDS: POTASSIUM CHLORIDE 10 MEQ CAP PO SCH (09:00)
[2018-04-06] MEDS ORDERED: NON-FORMULARY DRUG (Simvastatin 40 MG) PO SCH (09:00)
[2018-04-06] MEDS: LACTOBACILLUS ACIDOPHILUS TAB PO SCH ×3 (09:39→18:05)
[2018-04-06] MEDS: METOPROLOL TARTRATE 50 MG TAB PO SCH ×2 (09:39→20:53)
[2018-04-06] MEDS: ISOSORBIDE MONONITRATE 30 MG CR TAB (IMDUR) PO SCH (09:40)
[2018-04-06] MEDS: PRAVASTATIN SOD 80 MG TAB PO SCH (09:40)
[2018-04-06] MEDS: RAMIPRIL 5 MG CAP PO SCH (09:40)
[2018-04-06] MEDS: FUROSEMIDE 40 MG TAB PO SCH (09:41)
[2018-04-06] MEDS: ASPIRIN 81 MG CHEW TAB CHEW SCH (09:41)
[2018-04-06] MEDS: SODIUM CHLOR 0.9% 1000 ML INJ 1,000 ML IV SCH (13:00)
[2018-04-06] MEDS ORDERED: POTASSIUM CHLORIDE 10 MEQ CONTROLLED RELEASE TAB PO ONE (15:15)
[2018-04-06] MEDS: cefTRIAXone INJ 1,000 MG in SODIUM CHLORIDE 0.9% INJ 100 ML IV SCH (16:03)
--- NOTE | 2018-04-06 17:33 | HHI.PR ---
Subjective Remarks The patient denies chest pain or shortness of breath. Denies fevers or chills Patient seems to be having episodes of elevated blood pressures. Patient states that she has been falling a lot at home and that she has difficulty ambulating. Objective Vitals Vital Signs Date Time Temp Pulse Resp B/P (MAP) Pulse Ox O2 Delivery O2 Flow Rate FiO2 04/06/18 15:49 98.8 69 19 177/86 (116) 98 04/06/18 15:41 58 04/06/18 12:09 95 Nasal Cannula 2.00 04/06/18 12:03 98.0 64 20 129/62 (84) 98 04/06/18 10:25 65 04/06/18 08:28 98.4 62 20 170/72 (104) 98 04/06/18 05:30 98.3 62 20 138/67 (90) 96 04/06/18 04:00 67 04/06/18 00:00 98.8 68 19 145/67 (93) 95 04/05/18 21:00 98.3 74 17 155/70 (98) 94 04/05/18 20:19 04/05/18 18:41 77 23 216/90 (132) 95 Room Air 04/05/18 17:17 117 25 147/76 (99) 97 I/O 04/05/18 04/05/18 04/05/18 04/06/18 04/06/18 04/06/18 07:00 15:00 23:00 07:00 15:00 23:00 Intake Total 700 ml 1494 ml Balance 700 ml 1494 ml Intake Oral 700 ml 625 ml IV Total 869 ml # Voids 1 2 # Bowel Movements 0 0 1 Result Diagram: 04/06/180 04/06/18 0440 Imaging Last Impressions Abdomen/Pelvis CT 04/05/18 1425 Signed Impressions: CONCLUSION: 1. Minimal contusion right flank with right rib fractures. 2. No solid organ injury. Head CT 04/05/18 0000 Signed Impressions: CONCLUSION: 1. Atrophy otherwise negative Chest X-Ray 04/05/18 0000 Signed Impressions: CONCLUSION: Mild compensated cardiomegaly. Rib fractures noted on the right by CT, not visu alized by chest radiograph. Brain MRI 04/05/18 0000 Signed Impressions: CONCLUSION: 1. No acute intracranial abnormality. 2. Chronic small vessel ischemic change. Objective Remarks AAOx3 NAD Anicteric sclera Clear lungs BL abdomen soft, nt, nd no edema in lower extremities Decreased ROM on right knee associated with pain A/P Problem List: (1) Sepsis ICD Code: A41.9 - Sepsis, unspecified organism Plan: Secondary to a urinary tract infection. IV Rocephin Follow cultures IV fluids (2) BAO (acute kidney injury) ICD Code: N17.9 - Acute kidney failure, unspecified Status: Acute Plan: Review of previous lab records patient's baseline likely at 1.0. Creatinine elevated at 1.8 on admission. Continue IV fluids Continue to monitor BUN and creatinine Consult nephrology and obtain a renal ultrasound since there is a lot of protein in the urine. (3) HTN (hypertension) ICD Code: I10 - Essential (primary) hypertension Plan: Patient with severely elevated blood pressure with a systolic blood pressure 170s. Continue metoprolol tartrate Hold ramipril secondary to acute kidney injury Continue clonidine as needed for systolic blood pressure more than 160. We will start the patient on Cardura 2 mg p.o. daily. (4) UTI (urinary tract infection) ICD Code: N39.0 - Urinary tract infection, site not specified Plan: UA positive. Urine cultures not sent. I will obtain urine culture. Continue IV Rocephin (5) Hypokalemia ICD Code: E87.6 - Hypokalemia Plan: Replace with potassium chloride orally and monitor potassium levels. (6) Diabetes ICD Code: E11.9 - Type 2 diabetes mellitus without complications Plan: Follow blood sugars Insulin sliding scale Diabetic diet (7) Encephalopathy acute ICD Code: G93.40 - Encephalopathy, unspecified Status: Acute Plan: Likely secondary to metabolic encephalopathy. MRI did not show any acute intracranial abnormality. There are chronic small vessel ischemic changes. (8) Rib fractures ICD Code: S22.39XA - Fracture of one rib, unspecified side, initial encounter for closed fracture Plan: Status post fall at home. The patient complains of frequent falls. Incentive spirometry Pain control with Lortab. (9) Frequent falls ICD Code: R29.6 - Repeated falls Status: Acute Plan: As per patient and patient's daughter, the patient has been falling frequently. There is a question of an unsafe environment with the patient being a hoarder. Consult case management for possible DCF referral. PT consult. Assessment and Plan Coronary artery disease Congestive heart failure General anxiety disorder Gastroesophageal reflux disease Osteoarthritis Hypothyroidism No change in baseline treatments Follows an outpatient Discharge Planning Continue to monitor the medical floor. Possible DC in 1-2 days pending nephrology clearance and improvement of acute kidney injury. Problem Qualifiers (1) HTN (hypertension): Qualified Codes: I10 - Essential (primary) hypertension (2) UTI (urinary tract infection): Qualified Codes: N30.00 - Acute cystitis without hematuria (3) Diabetes: Qualified Codes: E11.9 - Type 2 diabetes mellitus without complications; Z79.4 - long-term (current) use of insulin (4) Rib fractures: Qualified Codes: S22.41XA - Multiple fractures of ribs, right side, initial encounter for closed fracture Steve Mc MD Apr 06, 2018 17:32
[2018-04-06] MEDS ORDERED: DOXAZOSIN MESYLATE 2 MG TAB PO SCH (18:00)
[2018-04-06] MEDS: glyBURIDE 5 MG TAB PO SCH (18:56)
--- NOTE | 2018-04-06 21:56 | MG ---
cc: Heladio Montgomery MD, Mandeep MD EEG NUMBER [id number] 5-7 Hz theta activity, 20-50 microvolts low-amplitude beta in the frontal channels. Good anterior to posterior gradient followed by delta bursts with tiny spindle activity suggestive of drowsy state and driving with photic stimulation. A lot of frontal myogenic artifact occurring at that time. Single EKG showing sinus rhythm. INTERPRETATION: Mild encephalopathy in drowsy state. Clinical correlation. MD LINDA Mccarty/ , 09:43 PM , 09:55 PM
[2018-04-07] VITALS (9 sets, daily range): BP systolic 144–190; BP diastolic 65–85; PULSE 59–69; RESP 17–20; TEMP 97.4–98.1; O2SAT 95–98
[2018-04-07] MEDS: cloNIDine HCL 0.1 MG TAB PO PRN ×3 (00:41→17:47)
[2018-04-07] MEDS: SODIUM CHLOR 0.9% 1000 ML INJ 1,000 ML IV SCH (06:11)
[2018-04-07] MEDS: LACTOBACILLUS ACIDOPHILUS TAB PO SCH ×3 (08:16→17:39)
[2018-04-07] MEDS: PRAVASTATIN SOD 80 MG TAB PO SCH (08:16)
[2018-04-07] MEDS: ISOSORBIDE MONONITRATE 30 MG CR TAB (IMDUR) PO SCH (08:18)
[2018-04-07] MEDS: ASPIRIN 81 MG CHEW TAB CHEW SCH (08:19)
[2018-04-07] MEDS: CLOPIDOGREL 75 MG TAB PO SCH (08:19)
[2018-04-07] MEDS: FUROSEMIDE 40 MG TAB PO SCH (08:20)
[2018-04-07] MEDS: METOPROLOL TARTRATE 50 MG TAB PO SCH ×2 (08:20→23:29)
[2018-04-07] MEDS: INSULIN ASPART SUPPLEMENTAL SCALE SQ SCH ×4 (08:22→21:00)
[2018-04-07] MEDS: INSULIN ASPART 1,000 UNITS/10 ML VIAL SQ SCH ×2 (08:24→21:00)
[2018-04-07] MEDS: SODIUM CHLORIDE 0.9% FLUSH 10 ML FLUSH IV FLUSH SCH ×2 (08:27→23:30)
[2018-04-07 08:37] LABS: AUTOMATED NEUTROPHIL # 4.9 TH/MM3 (1.8-7.7); BASOPHIL % 0.6 % (0.0-2.0); EOSINOPHIL # 0.2 TH/MM3 (0-0.4); EOSINOPHIL % 3.3 % (0.0-4.0); HEMATOCRIT 31.7 % (35.0-46.0); HEMOGLOBIN 10.5 GM/DL (11.6-15.3); LYMPH % 18.9 % (9.0-44.0); LYMPHOCYTE # 1.3 TH/MM3 (1.0-4.8); MEAN CELL VOLUME 86.7 FL (80.0-100.0); MEAN CORPUSCULAR HEMOGLOBIN 28.7 PG (27.0-34.0); MEAN CORPUSCULAR HGB CONC 33.2 % (32.0-36.0); MEAN PLATELET VOLUME 7.9 FL (7.0-11.0); MONO % 6.2 % (0.0-8.0); MONOCYTE # 0.4 TH/MM3 (0-0.9); PLATELET COUNT 277 TH/MM3 (150-450); RED BLOOD COUNT 3.66 MIL/MM3 (4.00-5.30); RED CELL DISTRIBUTION WIDTH 14.5 % (11.6-17.2); WHITE BLOOD COUNT 6.9 TH/MM3 (4.0-11.0)
[2018-04-07] MEDS: glyBURIDE 5 MG TAB PO SCH ×2 (08:59→18:33)
[2018-04-07] MEDS: POTASSIUM CHLORIDE 10 MEQ CAP PO SCH (08:59)
[2018-04-07] MEDS ORDERED: DOXAZOSIN MESYLATE 4 MG TAB PO SCH (09:00)
[2018-04-07 09:12] LABS: ALBUMIN 2.1 GM/DL (3.4-5.0); AST (GOT) 19 U/L (15-37); BICARBONATE 22.9 MEQ/L (21.0-32.0); BLOOD UREA NITROGEN 25 MG/DL (7-18); CALCIUM 7.9 MG/DL (8.5-10.1); CHLORIDE 106 MEQ/L (98-107); GLOMERULAR FILTRATION RATE 31 ML/MIN (>89); GLUCOSE,RANDOM 239 MG/DL (74-106); MAGNESIUM 1.8 MG/DL (1.5-2.5); SODIUM (NA) 139 MEQ/L (136-145)
[2018-04-07 09:14] LABS: ALT (GPT) 27 U/L (10-53); PHOSPHORUS 3.4 MG/DL (2.5-4.9)
[2018-04-07 09:16] LABS: ALKALINE PHOSPHATASE 178 U/L (45-117); TOTAL BILIRUBIN ADULT 0.2 MG/DL (0.2-1.0); TOTAL PROTEIN 5.4 GM/DL (6.4-8.2)
[2018-04-07] MEDS: VALSARTAN 80 MG TAB PO SCH (10:30)
--- NOTE | 2018-04-07 12:11 | HHI.PR ---
Subjective Remarks Blood pressure noted to be severely elevated in the systolics 180s. The patient denies any headache, nausea, vomiting. Denies chest pain or shortness of breath. Afebrile. Objective Vitals Vital Signs Date Time Temp Pulse Resp B/P (MAP) Pulse Ox O2 Delivery O2 Flow Rate FiO2 04/07/18 11:56 97.4 59 20 159/72 (101) 98 04/07/18 10:51 95 04/07/18 08:11 97.7 69 20 188/78 (114) 95 04/07/18 05:45 97.9 67 18 190/85 (120) 96 04/07/18 00:15 98.1 62 17 170/74 (106) 98 04/07/18 00:00 66 04/06/18 20:50 97.9 62 18 180/84 (116) 98 04/06/18 20:00 66 04/06/18 15:49 98.8 69 19 177/86 (116) 98 04/06/18 15:41 58 04/06/18 12:09 95 Nasal Cannula 2.00 04/06/18 12:03 98.0 64 20 129/62 (84) 98 I/O 04/06/18 04/06/18 04/06/18 04/07/18 04/07/18 04/07/18 07:00 15:00 23:00 07:00 15:00 23:00 Intake Total 1494 ml 500 ml 1095 ml Output Total 100 ml Balance 1494 ml 400 ml 1095 ml Intake Oral 625 ml 500 ml IV Total 869 ml 1095 ml Output Urine Total 100 ml # Voids 2 2 # Bowel Movements 0 1 0 Result Diagram: 04/07/18 0811 04/07/18 0811 Imaging Last Impressions Abdomen/Pelvis CT 04/05/18 1425 Signed Impressions: CONCLUSION: 1. Minimal contusion right flank with right rib fractures. 2. No solid organ injury. Head CT 04/05/18 0000 Signed Impressions: CONCLUSION: 1. Atrophy otherwise negative Chest X-Ray 04/05/18 0000 Signed Impressions: CONCLUSION: Mild compensated cardiomegaly. Rib fractures noted on the right by CT, not visu alized by chest radiograph. Brain MRI 04/05/18 0000 Signed Impressions: CONCLUSION: 1. No acute intracranial abnormality. 2. Chronic small vessel ischemic change. Objective Remarks AAOx3 NAD Anicteric sclera Clear lungs BL abdomen soft, nt, nd no edema in lower extremities Decreased ROM on right knee associated with pain A/P Problem List: (1) Sepsis ICD Code: A41.9 - Sepsis, unspecified organism Plan: Secondary to a urinary tract infection. IV Rocephin Follow cultures IV fluids Resolved. (2) BAO (acute kidney injury) ICD Code: N17.9 - Acute kidney failure, unspecified Status: Acute Plan: Review of previous lab records patient's baseline likely at 1.0. Creatinine elevated at 1.8 on admission. Continue IV fluids Continue to monitor BUN and creatinine Consult nephrology and obtain a renal ultrasound since there is a lot of protein in the urine. 04/07 nephrology consultation pending. Creatinine continues to trend down. Down from 1.8-1.6. (3) HTN (hypertension) ICD Code: I10 - Essential (primary) hypertension Plan: Patient with severely elevated blood pressure with a systolic blood pressure 170s. Continue metoprolol tartrate Hold ramipril secondary to acute kidney injury Continue clonidine as needed for systolic blood pressure more than 160. We will start the patient on Cardura 2 mg p.o. daily. 04/07 blood pressure severely elevated into the 180s systolic. Increase Cardura to 4 mg p.o. daily. Diovan added by nephrology. Continue to monitor vital signs. (4) UTI (urinary tract infection) ICD Code: N39.0 - Urinary tract infection, site not specified Plan: UA positive. Urine cultures not sent. At this point the patient has been treated and likely obtaining her urine culture would not yield any results. Continue IV Rocephin (5) Hypokalemia ICD Code: E87.6 - Hypokalemia Plan: Status post potassium replacement. Continue to monitor BMP. Potassium level 3.6. (6) Diabetes ICD Code: E11.9 - Type 2 diabetes mellitus without complications Plan: Follow blood sugars Insulin sliding scale Diabetic diet (7) Encephalopathy acute ICD Code: G93.40 - Encephalopathy, unspecified Status: Acute Plan: Likely secondary to metabolic encephalopathy. MRI did not show any acute intracranial abnormality. There are chronic small vessel ischemic changes. Encephalopathy has resolved. EEG showed mild encephalopathy drowsy state. Doubt this is secondary to seizure episode. (8) Rib fractures ICD Code: S22.39XA - Fracture of one rib, unspecified side, initial encounter for closed fracture Plan: Status post fall at home. The patient complains of frequent falls. Incentive spirometry Pain control with Lortab. (9) Frequent falls ICD Code: R29.6 - Repeated falls Status: Acute Plan: As per patient and patient's daughter, the patient has been falling frequently. There is a question of an unsafe environment with the patient being a hoarder. Consult case management for possible DCF referral. PT consult ---> discussed the case with physical therapist. Recommended rehab. Assessment and Plan Coronary artery disease Congestive heart failure General anxiety disorder Gastroesophageal reflux disease Osteoarthritis Hypothyroidism No change in baseline treatments Follows an outpatient Discharge Planning Continue to monitor the medical floor. Possible DC in 1-2 days pending nephrology clearance and improvement of acute kidney injury as well as stabilization of blood pressure. Patient will need rehab placement. Problem Qualifiers (1) HTN (hypertension): Qualified Codes: I10 - Essential (primary) hypertension (2) UTI (urinary tract infection): Qualified Codes: N30.00 - Acute cystitis without hematuria (3) Diabetes: Qualified Codes: E11.9 - Type 2 diabetes mellitus without complications; Z79.4 - halfway (current) use of insulin (4) Rib fractures: Qualified Codes: S22.41XA - Multiple fractures of ribs, right side, initial encounter for closed fracture Steve Mc MD Apr 07, 2018 12:11
--- NOTE | 2018-04-07 12:13 | PD.CONS ---
HPI Service Nephrology Consult Requested By Reason for Consult BAO, proteinuria Primary Care Physician Unknown History of Present Illness This is a very pleasant 83 y/o female admitted on 04/05 for altered dental status , aphasia, and frequent falls. Stroke was ruled out, diagnosed with UTI. Creatinine was 1.89 that improved to 1.6 today. In 2014 it was 1.32, and at that time she had trace proteinuria. Her UA is abnormal today, especially for heavy proteinuria. We were consulted to assist with management. She has had DM II for 60 years, also has HTN. Her mental status is now normal, she is ambulatory, not in distress. Mild edema is noted to lower extremities that is relatively new. She is a full code. (Kristie Agudelo) Review of Systems Constitutional: COMPLAINS OF: Fatigue Respiratory: DENIES: Shortness of breath Cardiovascular: COMPLAINS OF: Lower Extremity Edema, DENIES: Chest pain, Dyspnea on Exertion Neurologic: COMPLAINS OF: Abnormal gait, Speech Problems, Poor Balance ( Kristie Agudelo) Past Family Social History Allergies: Coded Allergies: Sulfa (Sulfonamide Antibiotics) (Unverified Allergy, Severe, HIVES, ) azithromycin (Unverified Allergy, Severe, Hives, 04/05/18) metformin (Unverified Allergy, Severe, HIVES, 04/05/18) pentazocine (Unverified Allergy, Severe, HIVES, 04/05/18) thiopental (Unverified Allergy, Severe, HIVES, 04/05/18) Uncoded Allergies: CO- QUETIN (Adverse Reaction, Severe, HIVES, 01/26/13) Past Medical History Coronary artery disease Congestive heart failure History of small hemorrhagic brain bleed Hyperlipidemia Hypertension General anxiety disorder Diabetes mellitus type 2 Gastroesophageal reflux disease Osteoarthritis Hypothyroidism Past Surgical History CABG x 3 in 2004 Cholecystectomy Thyroidectomy due to goiter Bilateral breast biopsies Varicose veins resection Reported Medications Humalog Inj (Insulin Human Lispro) 1,000 Unit/10 Ml Vial 20 Units SQ BID Aspirin 81 Mg Chew 81 Mg CHEW DAILY Isosorbide Mononitrate 10 Mg Tab 30 Mg PO DAILY Take 2 doses 7 hours apart. Lasix (Furosemide) 40 Mg Tab 40 Mg PO DAILY Ramipril 5 Mg Cap 5 Mg PO BID Plavix (Clopidogrel Bisulfate) 75 Mg Tab 75 Mg PO EVERY OTHER DAY Meclizine (Meclizine HCl) 25 Mg Tab 25 Mg PO TID PRN Potassium Chloride ER (Potassium Chloride) 10 Meq Cap 10 Meq PO DAILY Simvastatin 40 Mg Tab 40 Mg PO DAILY Metoprolol Tartrate 50 Mg Tab 50 Mg PO BID Glyburide 5 Mg Tab 10 Mg PO BID Take with meals at the same time each day Active Ordered Medications Current Medications Medications (Trade) Dose Ordered Sig/Aaliyah Route Start Time Stop Time Status Last Admin (NS Flush) 2 ml UNSCH PRN IV FLUSH 04/05/18 16:45 (NS Flush) 2 ml BID IV FLUSH 04/05/18 21:00 04/07/18 08:27 (Zofran Odt) 4 mg Q6H PRN PO 04/05/18 17:00 (Narcan Inj) 0.4 mg UNSCH PRN IV PUSH 04/05/18 16:45 (Milk Of Magnesia Liq) 30 ml Q12H PRN PO 04/05/18 16:45 (Lactinex) 1 tab TID PO 04/05/18 18:00 04/07/18 08:16 Ceftriaxone Sodium 1000 mg/ Sodium Chloride 100 ml @ 200 mls/hr Q24H IV 04/06/18 16:00 04/06/18 16:03 (Aspirin Chew) 81 mg DAILY CHEW 04/06/18 09:00 04/07/18 08:19 (Plavix) 75 mg EVERY OTHER DAY PO 04/07/18 09:00 04/07/18 08:19 (Lasix) 40 mg DAILY PO 04/06/18 09:00 04/07/18 08:20 (Imdur) 30 mg DAILY PO 04/06/18 09:00 04/07/18 08:18 (Antivert) 25 mg TID PRN PO 04/05/18 17:30 (Lopressor) 50 mg BID PO 04/05/18 21:00 04/07/18 08:20 (KCl) 10 meq DAILY PO 04/06/18 09:00 04/07/18 08:59 (Altace) 5 mg BID PO 04/05/18 21:00 Future Hold 04/06/18 09:40 (D50w (Vial) Inj) 50 ml UNSCH PRN IV PUSH 04/05/18 17:30 (Glucagon Inj) 1 mg UNSCH PRN OTHER 04/05/18 17:30 (NovoLOG SUPPLEMENTAL SCALE) 1 ACHS SLIDING SCALE SQ 04/05/18 21:00 04/07/18 08:22 (Pravachol) 80 mg DAILY PO 04/06/18 09:00 04/07/18 08:16 (NovoLOG INJ) 20 units BID SQ 04/05/18 21:00 04/07/18 08:24 (Catapres) 0.1 mg Q6H PRN PO 04/05/18 19:15 04/07/18 06:09 (Diabeta) 10 mg BID@0800,1700 PO 04/06/18 18:00 04/07/18 08:59 (Cardura) 4 mg DAILY PO 04/07/18 09:00 04/07/18 09:03 (Diovan) 80 mg DAILY PO 04/07/18 10:30 04/07/18 10:30 Family History Non contributory Social History Former smoker No ETOH Full Code (Kristie Agudelo) Physical Exam Vital Signs Vital Signs Date Time Temp Pulse Resp B/P (MAP) Pulse Ox O2 Delivery O2 Flow Rate FiO2 04/07/18 11:56 97.4 59 20 159/72 (101) 98 04/07/18 10:51 95 04/07/18 08:11 97.7 69 20 188/78 (114) 95 04/07/18 05:45 97.9 67 18 190/85 (120) 96 04/07/18 00:15 98.1 62 17 170/74 (106) 98 04/07/18 00:00 66 04/06/18 20:50 97.9 62 18 180/84 (116) 98 04/06/18 20:00 66 04/06/18 15:49 98.8 69 19 177/86 (116) 98 04/06/18 15:41 58 04/06/18 12:09 95 Nasal Cannula 2.00 04/06/18 12:03 98.0 64 20 129/62 (84) 98 Physical Exam Elderly female Awake, alert, follows commands Lungs clear S1/S2, RRR Abd soft, normal bowel sounds 1+ edema bilateral lower extremities Laboratory Laboratory Tests Test 04/07/18 08:11 White Blood Count 6.9 Red Blood Count 3.66 Hemoglobin 10.5 Hematocrit 31.7 Mean Corpuscular Volume 86.7 Mean Corpuscular Hemoglobin 28.7 Mean Corpuscular Hemoglobin Concent 33.2 Red Cell Distribution Width 14.5 Platelet Count 277 Mean Platelet Volume 7.9 Neutrophils (%) (Auto) 71.0 Lymphocytes (%) (Auto) 18.9 Monocytes (%) (Auto) 6.2 Eosinophils (%) (Auto) 3.3 Basophils (%) (Auto) 0.6 Neutrophils # (Auto) 4.9 Lymphocytes # (Auto) 1.3 Monocytes # (Auto) 0.4 Eosinophils # (Auto) 0.2 Basophils # (Auto) 0.0 CBC Comment DIFF FINAL Differential Comment Blood Urea Nitrogen 25 Creatinine 1.60 Random Glucose 239 Total Protein 5.4 Albumin 2.1 Calcium Level 7.9 Phosphorus Level 3.4 Magnesium Level 1.8 Alkaline Phosphatase 178 Aspartate Amino Transf (AST/SGOT) 19 Alanine Aminotransferase (ALT/SGPT) 27 Total Bilirubin 0.2 Sodium Level 139 Potassium Level 3.6 Chloride Level 106 Carbon Dioxide Level 22.9 Anion Gap 10 Estimat Glomerular Filtration Rate 31 (Kristie Agudelo) Result Diagram: 04/07/18 0811 04/07/18 0811 Imaging Last 72 hours Impressions Abdomen/Pelvis CT 04/05/18 1425 Signed Impressions: CONCLUSION: 1. Minimal contusion right flank with right rib fractures. 2. No solid organ injury. Head CT 04/05/18 0000 Signed Impressions: CONCLUSION: 1. Atrophy otherwise negative Chest X-Ray 04/05/18 0000 Signed Impressions: CONCLUSION: Mild compensated cardiomegaly. Rib fractures noted on the right by CT, not visu alized by chest radiograph. Brain MRI 04/05/18 0000 Signed Impressions: CONCLUSION: 1. No acute intracranial abnormality. 2. Chronic small vessel ischemic change. (Kristie Agudelo) Assessment and Plan Problem List: (1) BAO (acute kidney injury) ICD Codes: N17.9 - Acute kidney failure, unspecified Status: Acute Plan: In 2014 her creatinine was 1.32. At that time she had trace proteinuria. BAO most likely due to infection (UTI), may also have been dehydrated She has heavy proteinuria, quantification ordered but UTI may be contributing CT negative for obstruction Serologies and serum electrophoresis ordered She is non oliguric Renal function improving If discharged we will follow in CKD clinic to reevaluate proteinuria once UTI is treated. (2) UTI (urinary tract infection) ICD Codes: N39.0 - Urinary tract infection, site not specified Plan: On Rocephin (3) HTN (hypertension) ICD Codes: I10 - Essential (primary) hypertension Plan: BP elevated On doxazosin, Lasix, isosorbide, and metoprolol. MARY JO inhibitor on hold Valsartan added (4) Diabetes ICD Codes: E11.9 - Type 2 diabetes mellitus without complications Plan: Maintain glucose 140-180 mg/dL (Kristie Agudelo) Assessment and Plan patient was seen and examined. Agree with above assessment and plan. She has proteinuria, but it is confounded by presence of UTI. Need to repeat UA and proteinuria quantification after a few weeks. (Carlos Rawls MD) Problem Qualifiers (1) UTI (urinary tract infection): Qualified Codes: N30.00 - Acute cystitis without hematuria (2) HTN (hypertension): Qualified Codes: I10 - Essential (primary) hypertension (3) Diabetes: Qualified Codes: E11.9 - Type 2 diabetes mellitus without complications; Z79.4 - half-way (current) use of insulin Kristie Agudelo Apr 07, 2018 12:13 Carlos Rawls MD Apr 08, 2018 20:16
[2018-04-07] MEDS: cefTRIAXone INJ 1,000 MG in SODIUM CHLORIDE 0.9% INJ 100 ML IV SCH (17:40)
[2018-04-08] VITALS (9 sets, daily range): BP systolic 130–215; BP diastolic 63–88; PULSE 55–78; RESP 16–18; TEMP 97.7–98.7; O2SAT 96–97
[2018-04-08] MEDS: cloNIDine HCL 0.1 MG TAB PO PRN ×2 (04:03→23:40)
[2018-04-08] MEDS: glyBURIDE 5 MG TAB PO SCH ×2 (08:18→15:15)
[2018-04-08] MEDS: METOPROLOL TARTRATE 50 MG TAB PO SCH ×2 (08:18→21:17)
[2018-04-08] MEDS: ASPIRIN 81 MG CHEW TAB CHEW SCH (08:19)
[2018-04-08] MEDS: PRAVASTATIN SOD 80 MG TAB PO SCH (08:19)
[2018-04-08] MEDS: FUROSEMIDE 40 MG TAB PO SCH (08:19)
[2018-04-08] MEDS: LACTOBACILLUS ACIDOPHILUS TAB PO SCH ×3 (08:19→16:27)
[2018-04-08] MEDS: ISOSORBIDE MONONITRATE 30 MG CR TAB (IMDUR) PO SCH (08:19)
[2018-04-08] MEDS: INSULIN ASPART 1,000 UNITS/10 ML VIAL SQ SCH ×2 (08:20→21:00)
[2018-04-08] MEDS: SODIUM CHLORIDE 0.9% FLUSH 10 ML FLUSH IV FLUSH SCH ×2 (08:21→21:17)
[2018-04-08] MEDS: POTASSIUM CHLORIDE 10 MEQ CAP PO SCH (08:28)
[2018-04-08] MEDS ORDERED: GLUCAGON 1 MG/ML VIAL OTHER PRN (08:30)
[2018-04-08] MEDS ORDERED: DEXTROSE 50% IN WATER 50 ML VIAL(D50) IV PUSH PRN (08:30)
[2018-04-08] MEDS: VALSARTAN 80 MG TAB PO SCH (08:32)
[2018-04-08] MEDS ORDERED: PILL SPLITTER OTHER PRN (08:45)
[2018-04-08 08:54] LABS: HEMOGLOBIN 10.8 GM/DL (11.6-15.3); MEAN CELL VOLUME 86.6 FL (80.0-100.0); MEAN CORPUSCULAR HEMOGLOBIN 28.4 PG (27.0-34.0); MEAN CORPUSCULAR HGB CONC 32.8 % (32.0-36.0); MEAN PLATELET VOLUME 7.7 FL (7.0-11.0); PLATELET COUNT 293 TH/MM3 (150-450); RED BLOOD COUNT 3.82 MIL/MM3 (4.00-5.30); RED CELL DISTRIBUTION WIDTH 14.5 % (11.6-17.2); WHITE BLOOD COUNT 7.4 TH/MM3 (4.0-11.0)
[2018-04-08] MEDS: DOXAZOSIN MESYLATE 2 MG TAB PO SCH (08:56)
[2018-04-08 09:08] LABS: CALCIUM 8.3 MG/DL (8.5-10.1); CREATININE 1.36 MG/DL (0.50-1.00)
[2018-04-08] MEDS: INSULIN ASPART SUPPLEMENTAL SCALE SQ SCH ×3 (11:22→21:00)
--- NOTE | 2018-04-08 11:38 | HHI.NPPN ---
Subjective Renal Failure: Acute Interval History Sitting up in a chair. Renal function is better. (Kristie Agudelo) Objective Data Data Vital Signs Date Time Temp Pulse Resp B/P (MAP) Pulse Ox O2 Delivery O2 Flow Rate FiO2 04/08/18 08:00 98.4 60 18 192/69 (110) 96 215/88 (130) 04/08/18 08:00 55 04/08/18 04:00 98.7 58 18 175/75 (108) 96 04/08/18 00:00 97.7 58 16 150/73 (98) 96 04/07/18 20:00 98.0 59 17 144/65 (91) 96 04/07/18 16:07 98.0 68 20 161/68 (99) 97 04/07/18 11:56 97.4 59 20 159/72 (101) 98 (Kristie Agudelo) -: 04/08/18 0845 04/08/18 0845 Imaging Last 72 hours Impressions Abdomen/Pelvis CT 04/05/18 1425 Signed Impressions: CONCLUSION: 1. Minimal contusion right flank with right rib fractures. 2. No solid organ injury. (Kristie Agudelo) Physical Exam General Appearance: Well Developed, Well Nourished, No Acute Distress, Comfortable (Kristie Agudelo) Eyes Eye Exam: Pupils Equal, Pupils Reactive (Kristie Agudelo) Pulmonary Resp Exam: Clear Bilaterally, Breath Sounds Equal, No Distress (Kristie Agudelo) Cardiology CV Exam: Regular, Normal Sinus Rhythm, Good Perfusion (Kristie Agudelo) Gastrointestinal/Abdomen GI Exam: Soft, Non-Tender, Bowel Sounds Present, Positive Bowel Movement (Kristie Agudelo) Musculoskeletal MS Exam: Joints Intact, Normal Gait, Normal Tone, Good Strength (Kristie Agudelo) Integumentary Skin Exam: Clear, Warm, Dry, Intact (Kristie Agudelo) Extremeties Extremities Exam: Pedal Pulses Palpable, Trace Edema (Kristie Agudelo) Neurologic Neuro Exam: Alert, Awake, Oriented, Speech Clear, Moving All Extremities (Kristie Agudelo) Psychiatric Psych Exam: Appropriate Responses (Kristie Agudelo) Assessment/Plan Discussed Condition With: Patient Assessment Summary: BAO/Acute Renal Failure Problem List: (1) BAO (acute kidney injury) ICD Codes: N17.9 - Acute kidney failure, unspecified Status: Acute Plan: In 2014 her creatinine was 1.32. At that time she had trace proteinuria. BAO most likely due to infection (UTI) Renal function is better. She has heavy proteinuria, quantification ordered but UTI may be contributing We will follow outpatient to further evaluate and repeat urinalysis CT negative for obstruction; she has hematoma right flank s/p fall. Serologies and serum electrophoresis are still pending She is non oliguric Cleared for discharge from our perspective If discharged we will follow in CKD clinic to reevaluate proteinuria once UTI is treated. (2) UTI (urinary tract infection) ICD Codes: N39.0 - Urinary tract infection, site not specified Plan: On Rocephin (3) HTN (hypertension) ICD Codes: I10 - Essential (primary) hypertension Plan: BP still elevated On doxazosin, Lasix, isosorbide (dose increased), metoprolol. , and valsartan MARY JO inhibitor on hold due to BAO Patient should not be on both MARY JO inhibitor and ARB at discharge. Discharge orders should reflect that. Okay to resume MARY JO but valsartan may provide better BP control. (4) Diabetes ICD Codes: E11.9 - Type 2 diabetes mellitus without complications Plan: Maintain glucose 140-180 mg/dL Plan She can be discharged from renal perspective. (Kristie Agudelo) Plan patient was seen and examined. Agree with above assessment and plan. (Carlos Rawls MD) Problem Qualifiers (1) UTI (urinary tract infection): Qualified Codes: N30.00 - Acute cystitis without hematuria (2) HTN (hypertension): Qualified Codes: I10 - Essential (primary) hypertension (3) Diabetes: Qualified Codes: E11.9 - Type 2 diabetes mellitus without complications; Z79.4 - snf (current) use of insulin Kristie Agudelo Apr 08, 2018 11:38 Carlos Rawls MD Apr 08, 2018 20:20
[2018-04-08] MEDS ORDERED: DIOV80TA4 PO (14:31)
[2018-04-08] MEDS ORDERED: ISOS60TA PO (14:31)
[2018-04-08] MEDS ORDERED: CARD2TAB PO (14:31)
--- NOTE | 2018-04-08 14:34 | HHI.DCPOC ---
Discharge Care Plan Diagnosis: (1) Uncontrolled hypertension (2) Sepsis (3) UTI (urinary tract infection) (4) Frequent falls (5) BAO (acute kidney injury) (6) Encephalopathy acute (7) Diabetes Goals to Promote Your Health * To prevent worsening of your condition and complications * To maintain your health at the optimal level Directions to Meet Your Goals Take your medications as prescribed Follow your dietary instruction Follow activity as directed Keep your appointments as scheduled Take your immunizations and boosters as scheduled If your symptoms worsen call your PCP, if no PCP go to Urgent Care Center or Emergency Room Smoking is Dangerous to Your Health. Avoid second hand smoke Call the 24-hour hour crisis hotline for domestic abuse at Steve Mc MD Apr 08, 2018 14:34
--- NOTE | 2018-04-08 14:39 | HHI.DS ---
Discharge Summary Admission Date Apr 05, 2018 at 16:34 Discharge Date: Apr 08, 2018 Admitting Diagnosis cva vs tia, urinary tract infection. (1) Sepsis ICD Code: A41.9 - Sepsis, unspecified organism (2) BAO (acute kidney injury) ICD Code: N17.9 - Acute kidney failure, unspecified Status: Acute (3) HTN (hypertension) ICD Code: I10 - Essential (primary) hypertension (4) UTI (urinary tract infection) ICD Code: N39.0 - Urinary tract infection, site not specified (5) Hypokalemia ICD Code: E87.6 - Hypokalemia (6) Diabetes ICD Code: E11.9 - Type 2 diabetes mellitus without complications (7) Encephalopathy acute ICD Code: G93.40 - Encephalopathy, unspecified Status: Acute (8) Rib fractures ICD Code: S22.39XA - Fracture of one rib, unspecified side, initial encounter for closed fracture (9) Frequent falls ICD Code: R29.6 - Repeated falls Status: Acute Brief History - From Admission Mrs. Claros is an 83-year-old female. She came in the hospital secondary to slurred speech. Concerns for CVA versus TIA were present. She has found to have Sirs with a prominent UTI. Etiology for her slurred speech may also be related to encephalopathy from infection. Neurologic symptoms have resolved for now. Imaging of the brain shows no acute evidence of CVA. Other findings are hypokalemia and acute kidney injury, both of which appear to be related to urinary tract infection. No other complaints tonight. CBC/BMP: 04/08/18 0845 04/08/18 0845 Significant Findings Laboratory Tests Test 04/05/18 15:00 04/06/18 04:40 04/07/18 08:11 04/07/18 11:56 Urine Turbidity HAZY (CLEAR) Urine Protein GREATER THAN 600 mg/dL Urine Glucose (UA) 150 mg/dL (NEG) Urine Occult Blood SMALL (NEG) Urine Leukocyte Esterase MOD (NEG) Urine WBC 111 /hpf (0-5) Urine WBC Clumps FEW (NONE) Urine Bacteria MANY /hpf (NONE) Urine Mucus FEW /lpf (OCC) Urine Opiates Screen POS (NEG) Urine Benzodiazepines Screen POS (NEG) Neutrophils (%) (Auto) 78.8 % (16.0-70.0) 71.0 % (16.0-70.0) Neutrophils # (Auto) 8.4 TH/MM3 (1.8-7.7) Blood Urea Nitrogen 30 MG/DL (7-18) 25 MG/DL (7-18) Creatinine 1.89 MG/DL (0.50-1.00) 1.60 MG/DL (0.50-1.00) Random Glucose 185 MG/DL (74-106) 239 MG/DL (74-106) Albumin 2.4 GM/DL (3.4-5.0) 2.1 GM/DL (3.4-5.0) Calcium Level 8.0 MG/DL (8.5-10.1) 7.9 MG/DL (8.5-10.1) Alkaline Phosphatase 258 U/L (45-117) 178 U/L (45-117) Aspartate Amino Transf (AST/SGOT) 41 U/L (15-37) Potassium Level 3.2 MEQ/L (3.5-5.1) Estimat Glomerular Filtration Rate 25 ML/MIN (>89) 31 ML/MIN (>89) Red Blood Count 3.66 MIL/MM3 (4.00-5.30) Hemoglobin 10.5 GM/DL (11.6-15.3) Hematocrit 31.7 % (35.0-46.0) Total Protein 5.4 GM/DL (6.4-8.2) 5.2 GM/DL (6.0-7.6) Test 04/08/18 08:45 Red Blood Count 3.82 MIL/MM3 (4.00-5.30) Hemoglobin 10.8 GM/DL (11.6-15.3) Hematocrit 33.0 % (35.0-46.0) Blood Urea Nitrogen 26 MG/DL (7-18) Creatinine 1.36 MG/DL (0.50-1.00) Random Glucose 192 MG/DL (74-106) Calcium Level 8.3 MG/DL (8.5-10.1) Chloride Level 110 MEQ/L (98-107) Estimat Glomerular Filtration Rate 37 ML/MIN (>89) PE at Discharge AAOx3 NAD Anicteric sclera Clear lungs BL abdomen soft, nt, nd no edema in lower extremities Decreased ROM on right knee associated with pain Pt Condition on Discharge: Stable Discharge Disposition: Discharge to SNF Discharge Instructions DIET: Follow Instructions for: Heart Healthy Diet, Diabetic Diet Activities you can perform: See Additionl Instruction Other Activity Instructions: OOB with assistance as per PT Steve Mc MD Apr 08, 2018 14:39
[2018-04-08] MEDS: cefTRIAXone INJ 1,000 MG in SODIUM CHLORIDE 0.9% INJ 100 ML IV SCH (15:15)
[2018-04-08] MEDS: CEFUROXIME AXETIL 500 MG TAB PO SCH (21:17)
[2018-04-09] VITALS: BP 175/71; PULSE 70; RESP 18; TEMP 98.4; O2SAT 95
[2018-04-09 04:00] VITALS: BP 156/70; PULSE 71; RESP 18; TEMP 99.9; O2SAT 95
[2018-04-09 04:12] VITALS: PULSE 60
[2018-04-09] MEDS: VALSARTAN 80 MG TAB PO SCH (07:45)
[2018-04-09] MEDS: LACTOBACILLUS ACIDOPHILUS TAB PO SCH ×2 (07:45→11:23)
[2018-04-09] MEDS: glyBURIDE 5 MG TAB PO SCH (07:45)
[2018-04-09] MEDS: PRAVASTATIN SOD 80 MG TAB PO SCH (07:46)
[2018-04-09] MEDS: ASPIRIN 81 MG CHEW TAB CHEW SCH (07:46)
[2018-04-09] MEDS: cloNIDine HCL 0.1 MG TAB PO PRN (07:46)
[2018-04-09] MEDS: METOPROLOL TARTRATE 50 MG TAB PO SCH (07:46)
[2018-04-09] MEDS: CLOPIDOGREL 75 MG TAB PO SCH (07:46)
[2018-04-09] MEDS: FUROSEMIDE 40 MG TAB PO SCH (07:47)
[2018-04-09] MEDS: DOXAZOSIN MESYLATE 2 MG TAB PO SCH (07:47)
[2018-04-09] MEDS: CEFUROXIME AXETIL 500 MG TAB PO SCH (07:50)
[2018-04-09] MEDS: SODIUM CHLORIDE 0.9% FLUSH 10 ML FLUSH IV FLUSH SCH (07:50)
[2018-04-09] MEDS: POTASSIUM CHLORIDE 10 MEQ CAP PO SCH (07:50)
[2018-04-09] MEDS: INSULIN ASPART SUPPLEMENTAL SCALE SQ SCH ×2 (07:53→11:24)
[2018-04-09] MEDS: INSULIN ASPART 1,000 UNITS/10 ML VIAL SQ SCH (07:53)
[2018-04-09 08:00] VITALS: BP 223/85; PULSE 60; PULSE 64; RESP 17; TEMP 99; O2SAT 96
[2018-04-09] MEDS ORDERED: ISOSORBIDE MONONITRATE 60 MG CR TAB (IMDUR) PO SCH (09:00)
[2018-04-09 11:37] VITALS: PULSE 65
[2018-04-09 12:15] VITALS: BP 114/54; PULSE 65; RESP 17; TEMP 98.2; O2SAT 98
--- NOTE | 2018-04-09 13:25 | HHI.FF ---
Face to Face Verification Diagnosis: (1) Dementia (2) Frequent falls (3) HTN (hypertension) (4) UTI (urinary tract infection) (5) Sepsis (6) Rib fractures (7) Diabetes (8) Hypokalemia (9) Uncontrolled hypertension Physical Therapy Order: Improve ambulation, Strength and gait training Home Health Nursing Order: Nursing assessment with vital signs I have seen patient Vivian Claros on 04/09/18. My clinical findings support the need for the requested home health care services because: Limited ability to care for self High risk of falls Infection w/ risk of complications I certify that my clinical findings support that this patient is homebound because: Unsteady gait/balance Unsafe to leave home unassisted [id number] bed/chair Unable to use public transportation Steve Mc MD Apr 09, 2018 13:25
== END 2018-04-09 13:51 | DRG 871 ==
LOC: NEPC 14:07 → OBSVTOIN 16:34 → NEDA 16:34 → UNDOADMOB 16:46 → OBSVTOIN 17:43 → INTOOBSV 17:43 → N05B 20:31 → NEDA 20:31 → N05B 20:31
PROVIDERS: ADMIT Hospitalist; ATTEND Hospitalist
DX: A41.9 Sepsis, unspecified organism (principal); G93.41 Metabolic encephalopathy; N17.9 Acute kidney failure, unspecified; I13.0 Hypertensive heart and chronic kidney disease with heart failure and stage 1 through stage 4 chronic kidney disease, or unspecified chronic kidney disease; I50.9 Heart failure, unspecified; E11.22 Type 2 diabetes mellitus with diabetic chronic kidney disease; I08.1 Rheumatic disorders of both mitral and tricuspid valves; S22.41XA Multiple fractures of ribs, right side, initial encounter for closed fracture; N39.0 Urinary tract infection, site not specified; N18.9 Chronic kidney disease, unspecified; E78.5 Hyperlipidemia, unspecified; E89.0 Postprocedural hypothyroidism; I25.10 Atherosclerotic heart disease of native coronary artery without angina pectoris; K21.9 Gastro-esophageal reflux disease without esophagitis; E87.6 Hypokalemia; R47.1 Dysarthria and anarthria; R29.6 Repeated falls; R80.9 Proteinuria, unspecified; E86.0 Dehydration; J44.9 Chronic obstructive pulmonary disease, unspecified; M19.90 Unspecified osteoarthritis, unspecified site; F41.1 Generalized anxiety disorder; Y92.009 Unspecified place in unspecified non-institutional (private) residence as the place of occurrence of the external cause; Z79.4 Long term (current) use of insulin; Z82.49 Family history of ischemic heart disease and other diseases of the circulatory system; Z83.3 Family history of diabetes mellitus; Z86.73 Personal history of transient ischemic attack (TIA), and cerebral infarction without residual deficits; Z87.891 Personal history of nicotine dependence; Z88.1 Allergy status to other antibiotic agents; Z88.2 Allergy status to sulfonamides; Z95.1 Presence of aortocoronary bypass graft
CPT/HCPCS: 70450; 70551; 71045; 74176; 76937; 80048; 80053; 80307; 81001; 82043; 82550; 82948; 83735; 84100; 84165; 84484; 84702; 85025; 85027; 85384; 85610; 85730; 86021; 86038; 86850; 86900; 86901; 93005; 94150; 95819; 96361; 96365; 96366; J0696; J1815; J7030